=== PATIENT | female | born 1945 | race Caucasian/White ===

== ENCOUNTER 2017-04-21 15:53 | Emergency (ER) | payer MEDICARE ==
[2017-04-21 16:32] VITALS: RESP 18
--- NOTE | 2017-04-21 16:43 | ED ---
URI HPI - General Chief Complaint: Upper Respiratory Infection Stated Complaint: Cough Time Seen by Provider: 04/21/17 16:17 Source: patient, RN notes reviewed Mode of arrival: ambulatory Limitations: no limitations - History of Present Illness Initial Comments: This is a 71-year-old female who states she developed a cough with some yellow phlegm and then later on a fever. She states this is after having a colonoscopy done this morning. She states she had been of a sore throat after the procedure she was not intubated she was given only IV sedation. She denies any chest pain rhinorrhea earaches. His abdomen cough no chest pain again no bowel pain no nausea vomiting diarrhea no other complaints at this time. She is concerned about possible aspiration. MD Complaint: fever, cough - Related Data Home Medications Medication Instructions Recorded Confirmed Ascorbic Acid [Vitamin C] 500 mg PO HS 01/16/17 04/21/17 Fexofenadine HCl [Barbara Allergy] 180 mg PO DAILY PRN 01/16/17 04/21/17 Lecithin, Soy [Lecithin] 400 mg PO DAILY 01/16/17 04/21/17 [place] Otc (Unknown Dose) 1 tab PO DAILY 01/16/17 04/21/17 Thyrocsin (Unknown Dose) 1 tab PO DAILY 01/16/17 04/21/17 Z-M-C 1 tab PO DAILY 01/16/17 04/21/17 Previous Rx's Medication Instructions Recorded Amoxicillin/Potassium Clav 1 tab PO Q12HR #20 tab 04/21/17 [Augmentin 875-125 Tablet] Allergies Allergy/AdvReac Type Severity Reaction Status Date / Time azithromycin Allergy Nausea & Verified 04/21/17 16:53 [From Zithromax Z-Brad] Vomiting clarithromycin [From Biaxin] Allergy Nausea & Verified 04/21/17 16:53 Vomiting Penicillins Allergy Nausea & Verified 04/21/17 16:53 Vomiting COTTONSEED OIL Allergy Rash/Hives Uncoded 04/21/17 16:07 Review of Systems ROS Statement: Those systems with pertinent positive or pertinent negative responses have been documented in the HPI. ROS Other: All systems not noted in ROS Statement are negative. Past Medical History Past Medical History: Asthma, Cancer, Osteoarthritis (OA), Sleep Apnea/CPAP/ BIPAP Additional Past Medical History / Comment(s): Uterine CANCER(HYSTERECTOMY DONE) , LUMBAR DDD, PAST RT GREAT TOE FX, PAST HYPOGLYCEMIA . HX OF BEING TX W/ METFORMIN FOR A YEAR-STOPPED MEDS 4 MONTHS AGO(APPROX SEP 2016) NO LONGER TAKES MEDS OR CHECKS BS. VARICOSE VEINS,HAYFEVER, SINUS PROBLMES,HAS CPAP BUT DOES'NT USE IT. MONO AGE 23. EXERCISE INDUCED ASTHMA, BRONCHITIS. FUCHS CORNEAL DYSTROPHY RECENTLY DIAGNOSED. AT AGE 28 WAS ON THYROID MEDS FOR 1 YEAR THEN TAKNE OFF. History of Any Multi-Drug Resistant Organisms: None Reported Past Surgical History: Adenoidectomy, Appendectomy, Hysterectomy, Orthopedic Surgery, Tonsillectomy Additional Past Surgical History / Comment(s): bilateral hip replacement at [facility], UPPER DENTAL IMPLANT, 2007 HAD LUMBAR EPIDURAL STEROID INJ, COLONOSCOPY, L4 NERVE BLOCK Past Anesthesia/Blood Transfusion Reactions: Motion Sickness Past Psychological History: Depression Smoking Status: Former smoker Past Alcohol Use History: None Reported Past Drug Use History: None Reported - Past Family History Mother Family Medical History: Cancer, Rheumatoid Arthritis (RA) Additional Family Medical History / Comment(s): still alive. hx of aaa 2004, skin cancer. Father Family Medical History: Congestive Heart Failure (CHF) Sister(s) Family Medical History: Cancer Additional Family Medical History / Comment(s): colon cancer General Exam - General Exam Comments Initial Comments: This is a well-developed well-nourished awake alert oriented 3 female Limitations: no limitations General appearance: alert, in no apparent distress Head exam: Present: atraumatic, normocephalic, normal inspection Eye exam: Present: normal appearance, PERRL, EOMI. Absent: scleral icterus, conjunctival injection, periorbital swelling ENT exam: Present: normal exam, mucous membranes moist Neck exam: Present: normal inspection. Absent: tenderness, meningismus, lymphadenopathy Respiratory exam: Present: other (Some crackles at the base patient left). Absent: respiratory distress, wheezes, rales, rhonchi, stridor Cardiovascular Exam: Present: regular rate, normal rhythm, normal heart sounds. Absent: systolic murmur, diastolic murmur, rubs, gallop, clicks GI/Abdominal exam: Present: soft, normal bowel sounds. Absent: distended, tenderness, guarding, rebound, rigid Extremities exam: Present: normal inspection, full ROM, normal capillary refill. Absent: tenderness, pedal edema, joint swelling, calf tenderness Back exam: Present: normal inspection Neurological exam: Present: alert, oriented X3, CN II-XII intact Psychiatric exam: Present: normal affect, normal mood Skin exam: Present: warm, dry, intact, normal color. Absent: rash Course Vital Signs 04/21/17 04/21/17 16:05 16:31 Temperature 100.8 F H Pulse Rate 78 Respiratory 20 18 Rate Blood Pressure 134/65 O2 Sat by Pulse 93 L Oximetry Medical Decision Making - Medical Decision Making I did discuss findings with the patient the x-ray does show evidence of atelectasis a pneumonitis is suspected she will be discharged she states she can take penicillins he does cause upset stomach she is wanted try Augmentin. She will take Tylenol for her fever she states she will wait until she is home and take some. - Radiology Data Radiology results: report reviewed (I did review the imaging and report or is some evidence of atelectasis in left lower lobe), image reviewed Disposition Clinical Impression: Pneumonitis, Aspiration into respiratory tract, Febrile illness, acute Disposition: HOME SELF-CARE Condition: Good Instructions: Pneumonitis (ED), Fever in Adults (ED) Prescriptions: Amoxicillin/Potassium Clav [Augmentin 875-125 Tablet] 1 tab PO Q12HR #20 tab Referrals: Guero Guo DO [Primary Care Provider] - 1-2 days
--- NOTE | 2017-04-21 16:47 | XR ---
EXAMINATION TYPE: XR chest 2V DATE OF EXAM: 04/21/2017 COMPARISON: 01/16/2017 HISTORY: Cough and congestion after colonoscopy TECHNIQUE: Frontal and lateral views of the chest are obtained. FINDINGS: There is no focal air space opacity, pleural effusion, or pneumothorax seen. Minimal left basilar subsegmental atelectasis is noted. The cardiac silhouette size is within normal limits. Th e osseous structures are intact. Mild degenerative changes of the thoracic spine are noted. IMPRESSION: Minimal left basilar subsegmental atelectasis otherwise no acute cardiopulmonary process .
[2017-04-21 17:08] VITALS: BP 144/69; PULSE 104; TEMP 101.2
== END 2017-04-21 17:16 | disposition home or self-care (01) ==
LOC: EC 15:53
DX: J69.0 Pneumonitis due to inhalation of food and vomit (principal); J98.11 Atelectasis; G47.30 Sleep apnea, unspecified; F32.9 Major depressive disorder, single episode, unspecified; Z87.891 Personal history of nicotine dependence; Z79.899 Other long term (current) drug therapy; Z88.0 Allergy status to penicillin; Z88.1 Allergy status to other antibiotic agents; Z91.048 Other nonmedicinal substance allergy status; Z90.89 Acquired absence of other organs; Z85.42 Personal history of malignant neoplasm of other parts of uterus; Z90.710 Acquired absence of both cervix and uterus; Z99.89 Dependence on other enabling machines and devices
CPT/HCPCS: 71046; 99283

== ENCOUNTER 2017-10-15 06:00 | Emergency (ER) | payer MEDICARE ==
[2017-10-15 06:10] VITALS: BP 150/67; PULSE 82; RESP 16; TEMP 97.7
[2017-10-15 06:34] LABS: Appearance,Urine Turbid (Clear); Bacteria,Urine Moderate /hpf; Bilirubin,Urine Negative (Negative); Blood,Urine Large (Negative); Color,Urine Yellow; Glucose,Urine (UA) Negative (Negative); Ketones,Urine Negative (Negative); Leukocyte Esterase,Urine Large (Negative); Mucus,Urine Occasional /hpf; Nitrite,Urine Positive (Negative); PH, Urine 5.5 (5.0-8.0); Protein,Urine 2+ (Negative); RBC,Urine 165 /hpf (0-5); Specific Gravity,Urine 1.015 (1.001-1.035); Squamous Epithelial Cell,Urine 18 /hpf (0-4); Urobilinogen,Urine <2.0 mg/dL (<2.0); WBC,Urine >182 /hpf (0-5)
[2017-10-15] MEDS ORDERED: NITROFURANTOIN MONOHYD/M-CRYST 100 MG CAP PO STA (06:41)
--- NOTE | 2017-10-15 06:42 | ED ---
General Adult HPI - General Chief complaint: Urogenital Stated complaint: Female Time Seen by Provider: 10/15/17 06:21 Source: patient, RN notes reviewed, old records reviewed Mode of arrival: ambulatory Limitations: no limitations - History of Present Illness Initial comments: This is a 71-year-old female the ER for evaluation. Today she presents for evaluation regards to significant urinary tract symptoms. Burning with urination dysuria and decreased urination. Patient denies fever no back pain, no abdominal pain - Related Data Home Medications Medication Instructions Recorded Confirmed Ascorbic Acid [Vitamin C] 500 mg PO HS 01/16/17 04/21/17 Fexofenadine HCl [Barbara Allergy] 180 mg PO DAILY PRN 01/16/17 04/21/17 Lecithin, Soy [Lecithin] 400 mg PO DAILY 01/16/17 04/21/17 [place] Otc (Unknown Dose) 1 tab PO DAILY 01/16/17 04/21/17 Thyrocsin (Unknown Dose) 1 tab PO DAILY 01/16/17 04/21/17 Z-M-C 1 tab PO DAILY 01/16/17 04/21/17 Previous Rx's Medication Instructions Recorded Amoxicillin/Potassium Clav 1 tab PO Q12HR #20 tab 04/21/17 [Augmentin 875-125 Tablet] Nitrofurantoin Monohyd/M-Cryst 100 mg PO Q12HR #14 cap 10/15/17 [Macrobid] Allergies Allergy/AdvReac Type Severity Reaction Status Date / Time azithromycin Allergy Nausea & Verified 04/21/17 16:53 [From Zithromax Z-Brad] Vomiting clarithromycin [From Biaxin] Allergy Nausea & Verified 04/21/17 16:53 Vomiting Penicillins Allergy Nausea & Verified 04/21/17 16:53 Vomiting COTTONSEED OIL Allergy Rash/Hives Uncoded 04/21/17 16:07 Review of Systems ROS Statement: Those systems with pertinent positive or pertinent negative responses have been documented in the HPI. ROS Other: All systems not noted in ROS Statement are negative. Past Medical History Past Medical History: Asthma, Cancer, Osteoarthritis (OA), Sleep Apnea/CPAP/ BIPAP Additional Past Medical History / Comment(s): Uterine CANCER(HYSTERECTOMY DONE) , LUMBAR DDD, PAST RT GREAT TOE FX, PAST HYPOGLYCEMIA . HX OF BEING TX W/ METFORMIN FOR A YEAR-STOPPED MEDS 4 MONTHS AGO(APPROX SEP 2016) NO LONGER TAKES MEDS OR CHECKS BS. VARICOSE VEINS,HAYFEVER, SINUS PROBLMES,HAS CPAP BUT DOES'NT USE IT. MONO AGE 23. EXERCISE INDUCED ASTHMA, BRONCHITIS. FUCHS CORNEAL DYSTROPHY RECENTLY DIAGNOSED. AT AGE 28 WAS ON THYROID MEDS FOR 1 YEAR THEN TAKNE OFF. History of Any Multi-Drug Resistant Organisms: None Reported Past Surgical History: Adenoidectomy, Appendectomy, Hysterectomy, Orthopedic Surgery, Tonsillectomy Additional Past Surgical History / Comment(s): bilateral hip replacement at [facility], UPPER DENTAL IMPLANT, 2007 HAD LUMBAR EPIDURAL STEROID INJ, COLONOSCOPY, L4 NERVE BLOCK Past Anesthesia/Blood Transfusion Reactions: Motion Sickness Past Psychological History: Depression Smoking Status: Former smoker Past Alcohol Use History: None Reported Past Drug Use History: None Reported - Past Family History Mother Family Medical History: Cancer, Rheumatoid Arthritis (RA) Additional Family Medical History / Comment(s): still alive. hx of aaa 2004, skin cancer. Father Family Medical History: Congestive Heart Failure (CHF) Sister(s) Family Medical History: Cancer Additional Family Medical History / Comment(s): colon cancer General Exam Limitations: no limitations General appearance: alert, in no apparent distress Head exam: Present: atraumatic, normocephalic, normal inspection Eye exam: Present: normal appearance, PERRL, EOMI. Absent: scleral icterus, conjunctival injection, periorbital swelling ENT exam: Present: normal exam, mucous membranes moist Neck exam: Present: normal inspection. Absent: tenderness, meningismus, lymphadenopathy Respiratory exam: Present: normal lung sounds bilaterally. Absent: respiratory distress, wheezes, rales, rhonchi, stridor Cardiovascular Exam: Present: regular rate, normal rhythm, normal heart sounds. Absent: systolic murmur, diastolic murmur, rubs, gallop, clicks GI/Abdominal exam: Present: soft, normal bowel sounds. Absent: distended, tenderness, guarding, rebound, rigid Extremities exam: Present: normal inspection, full ROM, normal capillary refill. Absent: tenderness, pedal edema, joint swelling, calf tenderness Back exam: Present: normal inspection Neurological exam: Present: alert, oriented X3, CN II-XII intact Psychiatric exam: Present: normal affect, normal mood Skin exam: Present: warm, dry, intact, normal color. Absent: rash Course Vital Signs 10/15/17 06:06 Temperature 97.7 F Pulse Rate 82 Respiratory 16 Rate Blood Pressure 150/67 O2 Sat by Pulse 98 Oximetry Medical Decision Making - Medical Decision Making 71 female positive urinary tract infection, UTI positive we'll culture, patient discharged on antibiotics no nausea vomiting no fevers, no pain - Lab Data Lab Results 10/15/17 Range/Units 06:00 Urine Color Yellow Urine Appearance Turbid H (Clear) Urine pH 5.5 (5.0-8.0) Ur Specific [place] 1.015 (1.001-1.035) Urine Protein 2+ H (Negative) Urine Glucose (UA) Negative (Negative) Urine Ketones Negative (Negative) Urine Blood Large H (Negative) Urine Nitrite Positive H (Negative) Urine Bilirubin Negative (Negative) Urine Urobilinogen <2.0 (<2.0) mg/dL Ur Leukocyte Esterase Large H (Negative) Urine RBC 165 H (0-5) /hpf Urine WBC >182 H (0-5) /hpf Urine WBC Clumps Many H (None) /hpf Ur Squamous Epith Cells 18 H (0-4) /hpf Urine Bacteria Moderate H (None) /hpf Urine Mucus Occasional H (None) /hpf Disposition Clinical Impression: Urinary tract infection Disposition: HOME SELF-CARE Condition: Good Instructions: Urinary Tract Infection in Women (ED) Prescriptions: Nitrofurantoin Monohyd/M-Cryst [Macrobid] 100 mg PO Q12HR #14 cap Is patient prescribed a controlled substance at d/c from ED?: No Referrals: Guero Guo DO [Primary Care Provider] - 1-2 days
== END 2017-10-15 07:01 | disposition home or self-care (01) ==
LOC: EC 06:00
DX: N39.0 Urinary tract infection, site not specified (principal); F32.9 Major depressive disorder, single episode, unspecified; Z87.891 Personal history of nicotine dependence; Z88.0 Allergy status to penicillin; Z88.1 Allergy status to other antibiotic agents; Z91.048 Other nonmedicinal substance allergy status; Z79.899 Other long term (current) drug therapy; Z85.42 Personal history of malignant neoplasm of other parts of uterus; Z90.710 Acquired absence of both cervix and uterus
CPT/HCPCS: 81001; 87077; 87086; 87186; 99284

== ENCOUNTER → 2018-05-30 | Outpatient (CLI) | payer MEDICARE ==
[2018-05-30 13:20] LABS: Basophils % (A) 1 %; Eosinophils # (A) 0.3 k/uL (0-0.7); Eosinophils % (A) 5 %; HGB 13.6 gm/dL (11.4-16.0); Lymphocytes # (A) 1.5 k/uL (1.0-4.8); Lymphocytes % (A) 28 %; MCH 31.2 pg (25.0-35.0); MCHC 33.2 g/dL (31.0-37.0); Monocytes # (A) 0.3 k/uL (0-1.0); Monocytes % (A) 5 %; Neutrophils # (A) 3.2 k/uL (1.3-7.7); Neutrophils % (A) 59 %; Platelet Count 245 k/uL (150-450); RBC 4.36 m/uL (3.80-5.40); RDW 12.4 % (11.5-15.5); WBC 5.4 k/uL (3.8-10.6)
--- NOTE | 2018-05-30 15:52 | XR ---
EXAMINATION TYPE: XR lumbar spine 2 or 3V DATE OF EXAM: 05/30/2018 CLINICAL HISTORY: Difficulty ambulating with left lower extremity radiculopathy TECHNIQUE: Frontal and lateral images of the lumbar spine are obtained. COMPARISON: None FINDINGS: There is diffuse osseous demineralization. There are 5 lumbar type vertebral bodies identif ied. The lumbar spine shows no evidence of vertebral body height loss. There is grade 1 anterolisthe sis of L4 on L5 likely secondary to hypertrophic facet change. Facet arthropathy is seen from L3 thro ugh S1. Surgical clips are present in the pelvis and partially visualized. Minimal atherosclerosis of the abdominal aorta. Vertebral body heights and disk space heights are within normal limits. The ove rlying soft tissue appears unremarkable. IMPRESSION: 1. No vertebral body height loss of the lumbar spine. 2. Grade 1 anterolisthesis of L4 on L5 is likely due to hypertrophic facet change as facet arthropath y is seen from L3 through S1. 3. Diffuse osseous demineralization.
[2018-05-30 20:08] LABS: Anion Gap 8.4 mmol/L (4.00-12.00); Calcium 9.5 mg/dL (8.7-10.3); Carbon Dioxide 26.6 mmol/L (21.6-31.8); LDL Cholesterol,Calculated 109.8 mg/dL (0.0-131.0); Potassium 4.1 mmol/L (3.5-5.5); VLDL Calculation 23.2 mg/dL (5.00-40.00)
[2018-05-30 21:48] LABS: Hemoglobin A1C 5.7 % (4.0-6.0)
== END | disposition home or self-care (01) ==
LOC: LABWHC1 12:29
PROVIDERS: ATTEND Family Medicine
DX: M43.16 Spondylolisthesis, lumbar region (principal); M46.97 Unspecified inflammatory spondylopathy, lumbosacral region; E11.9 Type 2 diabetes mellitus without complications
CPT/HCPCS: 36415; 72100; 80048; 80061; 83036; 85025

== ENCOUNTER → 2018-11-14 | Outpatient (CLI) | payer MEDICARE ==
--- NOTE | 2018-11-19 17:10 | EEG ---
ELECTROENCEPHALOGRAM REPORT DATE OF SERVICE: 11/14/2018 REQUEST PHYSICIAN: Dr. Strange. ELECTRONYSTAGMOGRAPHIC REPORT: AGE: 72 VNG INDICATIONS: Vertigo beginning October 30 and resolving as of four days ago. They were occurring every 10-30 seconds and were triggered by body positional changes. VNG FINDINGS: SPONTANEOUS NYSTAGMUS: SACCADES: Saccades shows intact peak velocities accuracies and latencies. GAZE TEST: Gaze with fixation shows no nystagmus in any of the directions of gaze including centrally with vision denied. SINUSOIDAL TRACKING: Tracking shows no break-ups. OKN TEST: Optokinetic nystagmus shows no asymmetries at faster or slower speeds. DARIANA-HALLPIKE TEST: POSITION TEST: Static position testing in 6 different positions shows no nystagmus with eyes opened or vision denied. Dynamic position testing not done. CALORIC TEST: Caloric testing shows bilateral caloric weakness. 8 degrees elicited from the right ear and 2 degrees from the left ear. IMPRESSION: VNG testing shows no spontaneous nystagmus. All sections were unremarkable with the exception of caloric responses which were weak bilaterally. Therefore, no determination as to vestibulopathy could be made from testing today. Another test, such as head thrust test or if available, active and passive rotation testing are required to confirm presence of bilateral vestibular dysfunction. MMODL / IJN: [id number] /
== END | disposition home or self-care (01) ==
LOC: NEUROMAIN 08:38
PROVIDERS: ATTEND Otolaryngology
DX: R42 Dizziness and giddiness (principal)
CPT/HCPCS: 92537; 92540

== ENCOUNTER → 2019-02-11 | Outpatient (CLI) | payer MEDICARE ==
[2019-02-11 08:48] LABS: Albumin 4.8 g/dL (3.5-5.0); Bilirubin, Delta 0.2 mg/dL (0.0-0.2); Bilirubin,Unconjugated 0.9 mg/dL (0.0-1.1); Total Bilirubin 1.1 mg/dL (0.2-1.3); Total Protein 7.9 g/dL (6.3-8.2)
--- NOTE | 2019-02-11 09:21 | CT ---
EXAMINATION TYPE: CT chest w con DATE OF EXAM: 02/11/2019 COMPARISON: 04/21/2009 radiograph HISTORY: 73-year-old female Left renal mass. TECHNIQUE: Contiguous axial scanning of the chest after the administration of 100 mL of Isovue 300. Coronal/sagittal reconstructions performed. CT DLP: 468mGycm. Automatic exposure control utilized for a dose reduction. FINDINGS: Heart normal size without pericardial effusion. Aorta is normal caliber with conventional branching anatomy minimal arch calcification. Large caliber to the main right and left pulmonary arteries measuring 2.8 and 2.7 cm, respectively, s uggesting underlying pulmonary arterial hypertension. No thoracic lymphadenopathy by CT size criteria. A couple emphysematous cysts are noted. No consolidation or pleural effusion. Small hernia. Nonspecific nodularity within the left adrenal gland. 3 nodules are present measuring 1 .3, 1.2, and 1.2 cm. Partially visualized large complex cystic 8.1 cm anterior left upper pole renal mass. No osseous destructive process. IMPRESSION: 1. Partially visualized large, 8.1 cm complex cystic anterior left upper pole renal mass. 2. Nonspecific left adrenal nodularity. 3 nodules are present measuring 1.3 and 1.2 cm. 3. No evidence for metastatic disease to the thorax. 4. A couple emphysematous cysts. Findings suggest underlying pulmonary arterial hypertension.
== END | disposition home or self-care (01) ==
LOC: RADCTMAIN 07:16
PROVIDERS: ATTEND Urology
DX: D41.02 Neoplasm of uncertain behavior of left kidney (principal); J43.9 Emphysema, unspecified; Z88.0 Allergy status to penicillin; Z88.1 Allergy status to other antibiotic agents; Z91.048 Other nonmedicinal substance allergy status
CPT/HCPCS: 80076; 82565; 84520; 71260; 36415; Q9967

== ENCOUNTER → 2019-02-15 | Outpatient (CLI) | payer MEDICARE ==
[2019-02-15 16:15] LABS: ALT 17 U/L (4-34); AST 24 U/L (14-36); African American GFR (CKD) >90 (>60 ml/min/1.73 sqM); Albumin 4.5 g/dL (3.5-5.0); Alkaline Phosphatase 97 U/L (38-126); Anion Gap 8 mmol/L; Blood Urea Nitrogen 14 mg/dL (7-17); Calcium 9.4 mg/dL (8.4-10.2); Carbon Dioxide 28 mmol/L (22-30); Chloride 105 mmol/L (98-107); Glucose 116 mg/dL (74-99); Non-African American GFR(CKD) 86 (>60 ml/min/1.73 sqM); Potassium 4.1 mmol/L (3.5-5.1); Sodium 141 mmol/L (137-145); Total Bilirubin 0.6 mg/dL (0.2-1.3); Total Protein 7.3 g/dL (6.3-8.2)
[2019-02-15 16:26] LABS: Basophils # (A) 0.1 k/uL (0-0.2); Basophils % (A) 2 %; Eosinophils # (A) 0.2 k/uL (0-0.7); Eosinophils % (A) 3 %; HGB 13.6 gm/dL (11.4-16.0); Lymphocytes # (A) 1.4 k/uL (1.0-4.8); Lymphocytes % (A) 32 %; MCH 31.9 pg (25.0-35.0); MCHC 33.1 g/dL (31.0-37.0); MCV 96.4 fL (80.0-100.0); Mean Platelet Volume 10.1; Monocytes # (A) 0.3 k/uL (0-1.0); Monocytes % (A) 6 %; Neutrophils # (A) 2.4 k/uL (1.3-7.7); Neutrophils % (A) 55 %; Platelet Count 210 k/uL (150-450); RBC 4.25 m/uL (3.80-5.40); RDW 12.7 % (11.5-15.5); WBC 4.4 k/uL (3.8-10.6)
== END | disposition home or self-care (01) ==
LOC: LABPAT 15:38
PROVIDERS: ATTEND Urology
DX: Z01.818 Encounter for other preprocedural examination (principal); Z01.812 Encounter for preprocedural laboratory examination; D41.02 Neoplasm of uncertain behavior of left kidney; N28.9 Disorder of kidney and ureter, unspecified; R53.83 Other fatigue
CPT/HCPCS: 80053; 85025; 93005

== ENCOUNTER 2019-02-28 05:51 | Inpatient (IN) | payer MEDICARE ==
[2019-02-21 14:36] VITALS: BMI 30.2
--- NOTE | 2019-02-22 07:28 | P.GSHP ---
History of Present Illness H&P Date: 02/22/19 Chief Complaint: Left Renal Mass The patient is a 73-year-old white female who recently underwent evaluation for abdominal pain, which has resolved. A computed tomography scan of the abdomen was obtained, revealing an 8 cm left renal cystic mass suspicious for renal cell carcinoma. She denies flank pain and hematuria. Her metastatic evaluation has included a computed tomography scan of the chest and LFTs, showing no evidence of malignancy. She has been advised to undergo a left radical nephrectomy comes for this reason. She had an appointment for a second opinion, which she chose to cancel. - Constitutional Constitutional: Denies weight gain, Denies weight loss - Respiratory Respiratory: Reports wheezing - Genitourinary (Female) Genitourinary: Reports urinary frequency, Denies flank pain, Denies hematuria - Psychiatric Psychiatric: Reports insomnia Past Medical History Past Medical History: Asthma, Cancer, Osteoarthritis (OA), Sleep Apnea/CPAP/BIPAP Additional Past Medical History / Comment(s): left kidney mass,hx Uterine CANCER(HYSTERECTOMY DONE), LUMBAR DDD, PAST RT GREAT TOE FX, PAST HYPOGLYCEMIA . HX OF BEING TX W/ METFORMIN FOR A YEAR-STOPPED MEDS 4 MONTHS AGO(APPROX SEP 2016) NO LONGER TAKES MEDS OR CHECKS BS. VARICOSE VEINS,HAYFEVER, SINUS PROBLMES,HAS CPAP BUT DOES'NT USE IT. MONO AGE 23. EXERCISE INDUCED ASTHMA, BRONCHITIS. FUCHS CORNEAL DYSTROPHY RECENTLY DIAGNOSED. SILENT MIGRAINES History of Any Multi-Drug Resistant Organisms: None Reported Past Surgical History: Adenoidectomy, Appendectomy, Hysterectomy, Orthopedic Surgery, Tonsillectomy Additional Past Surgical History / Comment(s): bilateral hip replacement at [facility], UPPER DENTAL IMPLANT #7 tooth, 2007 HAD LUMBAR EPIDURAL STEROID INJ, COLONOSCOPY, L4 NERVE BLOCK Past Anesthesia/Blood Transfusion Reactions: Motion Sickness, Postoperative Nausea & Vomiting (PONV) Additional Past Anesthesia/Blood Transfusion Reaction / Comment(s): aspirated during colonoscopy Jan-2018 Smoking Status: Former smoker - Past Family History Mother Family Medical History: Cancer, Rheumatoid Arthritis (RA) Additional Family Medical History / Comment(s): still alive. hx of aaa 2004, skin cancer. Father Family Medical History: Congestive Heart Failure (CHF) Sister(s) Family Medical History: Cancer, Deep Vein Thrombosis (DVT), Pulmonary Embolus Additional Family Medical History / Comment(s): colon cancer Medications and Allergies Home Medications Medication Instructions Recorded Confirmed Type Ergocalciferol [Vitamin D2] 50,000 unit PO Q7D 02/21/19 02/21/19 History Santo Supplement 1 tab PO DAILY 02/21/19 02/21/19 History Symbiotic, W/ All B Vitamins 1 tab PO DAILY 02/21/19 02/21/19 History Thyrotone Supplement 1 tab PO DAILY 02/21/19 02/21/19 History Allergies Allergy/AdvReac Type Severity Reaction Status Date / Time adhesive tape Allergy Rash/Hives Verified 02/21/19 14:07 azithromycin Allergy Nausea & Verified 02/21/19 14:05 [From Zithromax Z-Brad] Vomiting clarithromycin [From Biaxin] Allergy Nausea & Verified 02/21/19 14:05 Vomiting nickel Allergy Rash/Hives Verified 02/21/19 14:07 Penicillins Allergy Nausea & Verified 02/21/19 14:05 Vomiting COTTONSEED OIL Allergy Rash/Hives Uncoded 02/21/19 14:05 petroleum products Allergy Rash/Hives Uncoded 02/21/19 14:07 Surgical Glue Allergy Rash/Hives Uncoded 02/21/19 14:52 Surgical - Exam - General well developed, well nourished, no distress - Neck no masses, trachea midline - Respiratory normal respiratory effort, clear to auscultation - Cardiovascular Rhythm: regular Abnormal Heart Sounds: no systolic murmur, no diastolic murmur - Abdomen Abdomen: soft, non tender, no guarding, no rigid, no rebound - Neurologic no disoriented, no combative - Psychiatric oriented to time, oriented to person, oriented to place, speech is normal, memory intact Results - Imaging CT scan - abdomen: report reviewed, image reviewed Assessment and Plan (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 The procedure has been reviewed in detail with the patient. She is aware that the procedure can be performed robotically, and referral for this was offered. The anticipated perioperative course has been reviewed with her. She is aware of potential risks, which include anesthesia, bleeding, infection, splenic injury, bowel injury, postoperative paralytic ileus, chylous ascites, and wound-related complications.
[~2019-02-28 05:51] MED LIST: LEVOFLOXACIN 500MG-D5W PMX 500 MG in DEXTROSE/WATER 1 100ML.BAG IVPB ONE
[2019-02-28] MEDS ORDERED: MIDAZOLAM 2 MG/2 ML VIAL IV PRN (06:04)
[2019-02-28] MEDS ORDERED: SCOPOLAMINE 1.5MG/72HR PATCH TRANSDERM ONE (06:04)
[2019-02-28] MEDS ORDERED: ONDANSETRON 4 MG/2 ML VIAL IVP ONE (06:04)
[2019-02-28] MEDS ORDERED: DEXAMETHASONE SOD PHOSPHATE 10 MG/ML 1 ML VIAL IV ONE (06:04)
[2019-02-28] MEDS ORDERED: LIDOCAINE 1% 20 ML VIAL (10MG/ML) FOR IV START INTRADERMA PRN (06:04)
[2019-02-28] MEDS ORDERED: HYDROmorphone 0.5 MG/0.5 ML SYRINGE IVP PRN (06:04)
[2019-02-28] MEDS: LACTATED RINGERS 1,000 ML IV SCH (06:26)
[2019-02-28 06:31] LABS: Glucose,Whole Blood 111 mg/dL (75-99)
[2019-02-28] MEDS ORDERED: PROPOFOL 10 MG/ML 20 ML VIAL IV ONE (07:40)
[2019-02-28] MEDS ORDERED: ROCURONIUM BROMIDE 10 MG/ML 10 ML VIAL IV ONE (07:40)
[2019-02-28] MEDS ORDERED: LIDOCAINE 1% INJ 10MG/ML (20 ML MDV) ONE (07:40)
[2019-02-28] MEDS ORDERED: NEOSTIGMINE 1 MG/ML 10 ML VIAL ONE (07:40)
[2019-02-28] MEDS ORDERED: MIDAZOLAM 2 MG/2 ML VIAL ONE (07:40)
[2019-02-28] MEDS ORDERED: ePHEDrine SULFATE/0.9% NACL/PF 50 MG/5 ML SYRINGE IV ONE (07:40)
[2019-02-28] MEDS ORDERED: WATER FOR INJECTION, STERILE 10 ML VIAL IV ONE (07:40)
[2019-02-28] MEDS ORDERED: GLYCOPYRROLATE 0.2 MG/ML 2 ML VIAL ONE (07:40)
[2019-02-28] MEDS ORDERED: fentaNYL (PF) 50 MCG/ML 2 ML AMP ONE (07:40)
[2019-02-28] MEDS ORDERED: diphenhydrAMINE 50 MG/ML 1 ML VIAL IVP PRN (07:46)
[2019-02-28] MEDS ORDERED: NALOXONE 0.4 MG/ML 1 ML VIAL IV PRN (07:46)
[2019-02-28] MEDS: ROPIVACAINE 250 MG, fentaNYL (PF) 1,250 MCG in SODIUM CHLORIDE 0.9% 175 ML EPIDURAL PRN ×2 (11:28→12:17)
--- NOTE | 2019-02-28 11:29 | P.OP ---
Date of Procedure: 02/28/19 Preoperative Diagnosis: Left renal mass Postoperative Diagnosis: Same Procedure(s) Performed: Left radical nephrectomy with adrenalectomy Anesthesia: GETAskylar Surgeon: Harjinder Steele Wheel Installer #1: Frandy Bro Estimated Blood Loss (ml): 500 IV fluids (ml): 1,700 Pathology: other (Left kidney and adrenal gland) Condition: stable Disposition: PACU Indications for Procedure: The patient is a 73-year-old white female who recently underwent evaluation for abdominal pain, which has resolved. A CT scan of the abdomen was obtained, revealing an 8 cm left renal cystic mass suspicious for renal cell carcinoma. She denies flank pain and hematuria. Her metastatic evaluation has included a CT scan of the chest and LFTs, showing no evidence of malignancy. She has elected to undergo a left radical nephrectomy comes for this reason. Operative Findings: The left upper pole cystic mass was located immediately adjacent to the spleen. The surgical specimen was removed intact without injury to the spleen. Description of Procedure: The patient was taken to the operating room and placed in the supine position. After being given general anesthesia, the abdomen was prepped and draped sterilely. A left sided chevron incision was made using the scalpel. The Bovie electrocautery was used to incise the subcutaneous tissues and muscular layers of the abdominal wall down to the peritoneum. The peritoneum was then carefully entered, and opened the full length of the incision. The abdomen was examined, and no abnormalities were noted other than the renal mass. Specifically, there was no evidence of malignancy elsewhere within the abdomen. The Bookwalter retractor was used for exposure. The peritoneum was incised at the line of Toldt, allowing the left hemicolon to be mobilized medially off of Gerota's fascia. The splenocolic ligament was carefully divided. This allowed the colon to be reflected medially until the aorta was exposed anteriorly. The dissection was then performed inferiorly at the tail of Gerota's fascia. The plane posterior to the kidney along the posterior abdominal wall was developed via blunt dissection. The dissection was then continued in a cephalad direction along the lateral aspect of the aorta. The tissue within the left renal hilum was clipped and divided immediately alongside the lateral aspect of the aorta. There was no evidence of adenopathy. The left renal vein and left renal artery were identified. The left renal artery was ligated using a 2-0 silk tie. The adrenal vein and the gonadal vein where isolated, ligated, and divided as they inserted into the left renal vein. The left renal vein was then likewise ligated twice proximally and distally. A suture ligature was placed through the proximal aspect of the vein prior to dividing it. The left renal artery was then ligated 2 additional times, such that it was ligated twice proximally and once distally prior to dividing it. The remaining hilar tissues were clipped and divided at this time. Once the hilar dissection had been completed, the inferior aspect of the dissection was completed. Both the ureter and gonadal vein were clipped and divided. Blunt dissection was then performed to complete the posterior dissection. Superiorly, the peritoneum was incised. Superior attachments were clipped and divided, allowing removal of the surgical specimen along with the adrenal gland. It should be noted that the left upper pole cystic mass was immediately adjacent to the spleen, making this aspect of the procedure extremely difficult. After removing the specimen, the surgical field was examined and hemostasis was noted to be excellent. The spleen showed no evidence of injury. The Bookwalter retractor was removed. The abdominal contents were allowed to return to their normal location. Each individual muscle layer of the anterior abdominal wall was closed using #1 Vicryl suture in a running fashion. Hemostasis within the subcutaneous tissues was excellent. The skin was closed using berenice. A sterile gauze dressing was applied over the incision. All sponge and needle counts were correct. The patient tolerated the procedure well was taken to the recovery room in stable condition.
[2019-02-28] MEDS ORDERED: diphenhydrAMINE 50 MG/ML 1 ML VIAL IVP ONE (12:02)
[2019-02-28] MEDS: DEXTROSE 5%-0.45% NACL 1,000 ML IV SCH ×2 (16:40→22:01)
[2019-02-28] MEDS: ONDANSETRON 4 MG/2 ML VIAL IVP PRN (21:51)
[2019-02-28] MEDS: HEPARIN SODIUM,PORCINE 5,000 UNIT/ML 1 ML VIAL SQ SCH (21:52)
[2019-03-01] MEDS: ROPIVACAINE 250 MG, fentaNYL (PF) 1,250 MCG in SODIUM CHLORIDE 0.9% 175 ML EPIDURAL PRN (05:07)
[2019-03-01 07:47] LABS: Basophils % (A) 0 %; Eosinophils # (A) 0.1 k/uL (0-0.7); Eosinophils % (A) 1 %; HCT 32.1 % (34.0-46.0); Lymphocytes # (A) 1.1 k/uL (1.0-4.8); Lymphocytes % (A) 21 %; MCH 32.6 pg (25.0-35.0); MCHC 34.2 g/dL (31.0-37.0); MCV 95.5 fL (80.0-100.0); Mean Platelet Volume 8.3; Monocytes # (A) 0.3 k/uL (0-1.0); Monocytes % (A) 5 %; Neutrophils # (A) 3.9 k/uL (1.3-7.7); Neutrophils % (A) 72 %; Platelet Count 156 k/uL (150-450); RBC 3.36 m/uL (3.80-5.40); RDW 12.4 % (11.5-15.5); WBC 5.4 k/uL (3.8-10.6)
--- NOTE | 2019-03-01 08:16 | P.PN ---
Progress Note - Text Progress Note Date: 03/01/19 Patient was seen at 7:15 AM 03/01/2019. Postoperative day #1 , thoracic epidural catheter placed for postoperative analgesia, patient doing well epidural site okay, patient currently on combination of epidural infusion solution of Ropivacaine 0.0625% and fentanyl 2.5 g per mL the infusion rate at 5 ml per hour , patient had no motor deficit epidural site okay , vital signs stable ,VAS 0 /10, at rest and she had minimal pain with activity , Assessment and plan= post operative day #1 patient doing well ,pain well controlled , there is no anesthesia related complications
[2019-03-01] MEDS: DEXTROSE 5%-0.45% NACL 1,000 ML IV SCH ×2 (08:17→17:45)
[2019-03-01] MEDS: HEPARIN SODIUM,PORCINE 5,000 UNIT/ML 1 ML VIAL SQ SCH ×2 (08:17→21:25)
[2019-03-01 08:35] LABS: Calcium 7.9 mg/dL (8.4-10.2); Potassium 3.6 mmol/L (3.5-5.1)
--- NOTE | 2019-03-01 09:00 | P.PN ---
Subjective Progress Note Date: 03/01/19 Principal diagnosis: POD #1, s/p left radical nephrectomy The patient feels well. Her pain is controlled. She has experienced mild nausea which she attributes to the epidural. The epidural doses were decreased and the nausea has resolved. She has sat at the edge of the bed and wishes to ambulate. She denies chest pain and shortness of breath. Objective - Vital Signs Vital signs: Vital Signs Temp 98.9 F 03/01/19 07:00 Pulse 84 03/01/19 07:00 Resp 17 03/01/19 07:00 BP 110/63 03/01/19 07:00 Pulse Ox 93 L 03/01/19 07:00 Intake & Output 02/28/19 03/01/19 03/01/19 18:59 06:59 18:59 Intake Total 3206 Output Total 1350 Balance 1856 Weight 84.8 kg Intake: IV 3006 Intake, IV Titration 200 Amount Dextrose 5%-0.45% NaCl 1, 200 000 ml @ 100 mls/hr IV . Q10H [facility] Rx#:[id number] Output: Urine 850 Estimated Blood Loss 500 Other: Voiding Method Self-Catheterization Self-Catheterization # Voids 2 - Constitutional General appearance: Present: average body habitus, cooperative, no acute distress - Gastrointestinal Gastrointestinal Comment(s): Soft, non-distended. Dressing dry and intact. - Psychiatric Psychiatric: Present: A&O x's 3, appropriate affect - Labs CBC & Chem 7: 03/01/19 07:14 03/01/19 07:14 Labs: Abnormal Lab Results - Last 24 Hours (Table) 03/01/19 03/01/19 Range/Units 07:14 07:14 RBC 3.36 L (3.80-5.40) m/uL Hgb 11.0 L (11.4-16.0) gm/dL Hct 32.1 L (34.0-46.0) % Creatinine 1.16 H (0.52-1.04) mg/dL Glucose 128 H (74-99) mg/dL Calcium 7.9 L (8.4-10.2) mg/dL Assessment and Plan (1) Neoplasm of uncertain behavior of left kidney Current Visit: No Status: Acute Code(s): D41.02 - NEOPLASM OF UNCERTAIN BEHAVIOR OF LEFT KIDNEY SNOMED Code(s): 538860581446481 Plan: D/C [place]. Begin clear liquid diet, advance as tolerated. Ambulate.
[2019-03-01] MEDS: ACETAMINOPHEN TAB 325 MG TAB PO PRN (16:57)
[2019-03-01] MEDS: LACTATED RINGERS 1,000 ML IV SCH (19:06)
[2019-03-02] MEDS: DEXTROSE 5%-0.45% NACL 1,000 ML IV SCH ×3 (03:53→22:54)
[2019-03-02] MEDS: LACTATED RINGERS 1,000 ML IV SCH (04:58)
[2019-03-02] MEDS: HEPARIN SODIUM,PORCINE 5,000 UNIT/ML 1 ML VIAL SQ SCH ×2 (08:13→21:17)
[2019-03-02] MEDS: ACETAMINOPHEN TAB 325 MG TAB PO PRN ×3 (08:14→21:17)
--- NOTE | 2019-03-02 10:32 | P.PN ---
Progress Note - Text Progress Note Date: 03/02/19 The patient is 2 days post left radical nephrectomy and adrenalectomy. She is afebrile and normotensive. She is tolerating a diet. She denies any shortness of breath or chest pain. She still has an epidural catheter in and says that she would prefer to have this in for another day as she develops pain when the epidural rate is decreased. Her Jarrett catheter remains in place and is draining clear urine. The patient's epidural catheter will be left in place if okay with anesthesia. I anticipate removing the epidural catheter in the morning. It's unclear if the patient would be able to be discharged tomorrow as she says she lives alone and is not certain that she would be able to manage by herself.
--- NOTE | 2019-03-02 15:55 | P.PN ---
Progress Note - Text 03/02 2549 73-year-old female status post radical nephrectomy by Dr. Steele. Patient has an epidural catheter for postop pain control with the solution running at 6 mL an hour, she has a VAS of 3, no motor or sensory deficit noted. And to continue epidural infusion
[2019-03-02] MEDS: ONDANSETRON 4 MG/2 ML VIAL IVP PRN (22:54)
[2019-03-03] MEDS: ROPIVACAINE 250 MG, fentaNYL (PF) 1,250 MCG in SODIUM CHLORIDE 0.9% 175 ML EPIDURAL PRN (00:51)
[2019-03-03] MEDS: ACETAMINOPHEN TAB 325 MG TAB PO PRN (07:05)
[2019-03-03] MEDS: HEPARIN SODIUM,PORCINE 5,000 UNIT/ML 1 ML VIAL SQ SCH ×2 (07:09→21:02)
[2019-03-03] MEDS ORDERED: BISACODYL 10 MG SUPP RECTAL STA (07:17)
[2019-03-03] MEDS: DEXTROSE 5%-0.45% NACL 1,000 ML IV SCH (07:52)
[2019-03-03 08:00] LABS: Basophils % (A) 1 %; Eosinophils # (A) 0.1 k/uL (0-0.7); Eosinophils % (A) 4 %; HCT 34.1 % (34.0-46.0); HGB 10.9 gm/dL (11.4-16.0); Lymphocytes # (A) 0.7 k/uL (1.0-4.8); Lymphocytes % (A) 20 %; MCH 31.3 pg (25.0-35.0); MCHC 31.9 g/dL (31.0-37.0); MCV 98.1 fL (80.0-100.0); Mean Platelet Volume 7.9; Monocytes # (A) 0.2 k/uL (0-1.0); Monocytes % (A) 6 %; Neutrophils # (A) 2.4 k/uL (1.3-7.7); Neutrophils % (A) 68 %; Platelet Count 150 k/uL (150-450); RBC 3.48 m/uL (3.80-5.40); RDW 12.1 % (11.5-15.5); WBC 3.5 k/uL (3.8-10.6)
--- NOTE | 2019-03-03 08:59 | P.PN ---
Progress Note - Text Progress Note Date: 03/03/19 The patient is afebrile and normotensive. She is tolerating regular diet. Early this morning she developed severe pain in the right lower quadrant. This was associated with some nausea. Since that time she has passed a moderate amount of gas and says that she feels much better. White blood count this morning is 3500. On examination her incision is dry. She has a moderate amount of gas present within the abdomen. There is mild tenderness in the right lower quadrant and the findings are most consistent with discomfort related to gas in the colon. The patient has been treated with a Dulcolax suppository. Her epidural catheter will be removed this morning and her Jarrett catheter will be removed later in the day. If she remains comfortable she will be discharged in the morning.
[2019-03-03] MEDS ORDERED: KETOROLAC 30 MG/ML 1 ML VIAL IVP SCH (12:00)
[2019-03-03] MEDS: KETOROLAC 30 MG/ML 1 ML VIAL IVP PRN ×2 (14:09→21:02)
--- NOTE | 2019-03-03 20:21 | P.PN ---
Progress Note - Text 03/03 151 33-year-old female status post nephrectomy. Patient had an epidural catheter for postop pain control was DC'd this morning. No sensory or motor deficit noted. Patient doing well.
[2019-03-04] MEDS: DEXTROSE 5%-0.45% NACL 1,000 ML IV SCH ×3 (03:14→18:18)
[2019-03-04] MEDS: KETOROLAC 30 MG/ML 1 ML VIAL IVP PRN ×2 (03:15→19:59)
[2019-03-04] MEDS: HEPARIN SODIUM,PORCINE 5,000 UNIT/ML 1 ML VIAL SQ SCH ×2 (08:27→20:00)
[2019-03-04] MEDS: ACETAMINOPHEN TAB 325 MG TAB PO PRN ×3 (08:30→23:45)
[2019-03-04] MEDS ORDERED: BISACODYL 10 MG SUPP RECTAL STA (08:34)
--- NOTE | 2019-03-04 16:43 | P.PN ---
Subjective Progress Note Date: 03/04/19 POD #4 s/p L Nephrectomy, complaining of nauseas and RLQ abdominal pain this am. Has not vomited, and is passing flatus Objective - Vital Signs Vital signs: Vital Signs Temp 98.2 F 03/04/19 15:00 Pulse 83 03/04/19 15:00 Resp 12 03/04/19 15:00 BP 175/75 03/04/19 15:00 Pulse Ox 95 03/04/19 15:00 Intake & Output 03/03/19 03/04/19 03/04/19 18:59 06:59 18:59 Intake Total 1000 Output Total 1000 Balance 0 Intake: Intake, IV Titration 700 Amount Dextrose 5%-0.45% NaCl 1, 700 000 ml @ 100 mls/hr IV . Q10H [facility] Rx#:[id number] Oral 300 Output: Urine 1000 Uretheral (Jarrett) 1000 Other: Voiding Method Indwelling Catheter Indwelling Catheter Indwelling Catheter # Voids 3 - Gastrointestinal General gastrointestinal: Present: tenderness (RLQ). Absent: distended, soft - Psychiatric Psychiatric: Present: A&O x's 3 - Labs CBC & Chem 7: 03/03/19 07:40 03/01/19 07:14 Assessment and Plan Assessment: 73 yo female S/P Left nephrectomy, complain of poor appetite and RLQ abdominal pain, which is improving -ambulate -pain control -Bowel regimen -Potential discharge home tomorrow if symptoms improve
[2019-03-05] MEDS: DEXTROSE 5%-0.45% NACL 1,000 ML IV SCH ×3 (02:56→19:33)
[2019-03-05] MEDS: KETOROLAC 30 MG/ML 1 ML VIAL IVP PRN ×2 (03:00→11:12)
[2019-03-05] MEDS: HEPARIN SODIUM,PORCINE 5,000 UNIT/ML 1 ML VIAL SQ SCH ×2 (08:11→21:34)
[2019-03-05] MEDS: ACETAMINOPHEN TAB 325 MG TAB PO PRN ×3 (08:19→21:35)
[2019-03-05] MEDS: SENNOSIDES-DOCUSATE SODIUM 1 EACH TAB PO SCH ×2 (10:19→21:34)
[2019-03-05] MEDS: ONDANSETRON 4 MG/2 ML VIAL IVP PRN (15:05)
--- NOTE | 2019-03-05 16:12 | P.PN ---
Subjective Progress Note Date: 03/05/19 POD #5 s/p L Nephrectomy, complaining of nauseas and RLQ abdominal pain this am. Has not vomited, and is passing flatus. Indicates pain has improved compared to yesterday. Objective - Vital Signs Vital signs: Vital Signs Temp 98.1 F 03/05/19 15:00 Pulse 83 03/05/19 15:00 Resp 14 03/05/19 15:00 BP 178/80 03/05/19 15:00 Pulse Ox 97 03/05/19 15:00 Intake & Output 03/04/19 03/05/19 03/05/19 18:59 06:59 18:59 Intake Total 20 Balance 20 Weight 84.8 kg Intake: Oral 20 Other: Voiding Method Indwelling Catheter Toilet Toilet # Voids 3 1 2 - Gastrointestinal General gastrointestinal: Present: soft, tenderness (RLQ). Absent: distended - Psychiatric Psychiatric: Present: A&O x's 3 - Labs CBC & Chem 7: 03/03/19 07:40 03/01/19 07:14 Assessment and Plan Assessment: 73 yo female S/P Left nephrectomy, complain of poor appetite and RLQ abdominal pain, which is improving -ambulate -pain control -Bowel regimen -Potential discharge home tomorrow
[2019-03-06] MEDS: ONDANSETRON 4 MG/2 ML VIAL IVP PRN ×2 (00:31→10:22)
[2019-03-06] MEDS: ACETAMINOPHEN TAB 325 MG TAB PO PRN ×2 (03:57→10:21)
[2019-03-06 08:17] VITALS: BP 149/79; PULSE 72; TEMP 98
[2019-03-06] MEDS: HEPARIN SODIUM,PORCINE 5,000 UNIT/ML 1 ML VIAL SQ SCH (09:52)
[2019-03-06] MEDS: SENNOSIDES-DOCUSATE SODIUM 1 EACH TAB PO SCH (09:53)
[2019-03-06 11:34] VITALS: RESP 12
--- NOTE | 2019-03-06 11:56 | P.DS ---
Providers Date of admission: 02/28/19 05:51 Expected date of discharge: 03/06/19 Attending physician: Harjinder Steele Primary care physician: Guero Guo - Discharge Diagnosis(es) (1) Renal cell carcinoma of left kidney Current Visit: Yes Status: Acute Hospital Course: On the day of admission, the patient underwent an uncomplicated left radical nephrectomy. The postoperative course was uncomplicated. She remained afebrile with stable vital signs. The epidural catheter was removed on the third postoperative day. She developed right lower quadrant abdominal pain, associated with decreased appetite and nausea. This improved daily and was significantly improved at the time of discharge. At that time, she was tolerating diet in small amounts. Her nausea was improving. She was passing flatus. She was ambulating without difficulty. On examination, the abdomen was soft and non-distended. The incision was clean, dry, and intact. Mild right lower quadrant tenderness to palpation was noted, without guarding or rebound. 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 Procedures: Left radical nephrectomy on 02/28/2019. Patient Condition at Discharge: Good Plan - Discharge Summary Discharge Rx Participant: No New Discharge Prescriptions: New Hydrocodone/Acetaminophen [[place] 5-325] 1 - 2 each PO Q4HR PRN #6 tab PRN Reason: Pain No Action Ergocalciferol [Vitamin D2] 50,000 unit PO Q7D Thyrotone Supplement 1 tab PO DAILY Symbiotic, W/ All B Vitamins 1 tab PO DAILY Marina Supplement 1 tab PO DAILY Discharge Medication List Ergocalciferol [Vitamin D2] 50,000 unit PO Q7D 02/21/19 [History] Marina Supplement 1 tab PO DAILY 02/21/19 [History] Symbiotic, W/ All B Vitamins 1 tab PO DAILY 02/21/19 [History] Thyrotone Supplement 1 tab PO DAILY 02/21/19 [History] Hydrocodone/Acetaminophen [[place] 5-325] 1 - 2 each PO Q4HR PRN #6 tab 03/01/19 [Rx] Follow up Appointment(s)/Referral(s): Guero Guo DO [Primary Care Provider] - 03/13/19 1:45 pm Harjinder Steele MD [STAFF PHYSICIAN] - 2 Weeks Activity/Diet/Wound Care/Special Instructions: Diet as tolerated. Okay to shower. No lifting, driving, or strenuous activity. Discharge Disposition: HOME SELF-CARE
[2019-03-06] MEDS: DEXTROSE 5%-0.45% NACL 1,000 ML IV SCH (14:12)
== END 2019-03-06 14:43 | disposition home or self-care (01) | DRG 658 ==
LOC: 2ORMAIN 05:51 → 4SSUR 11:03
PROVIDERS: ADMIT Urology; ATTEND Urology
PROC: 0GT20ZZ Resection of Left Adrenal Gland, Open Approach (ICD-10-PCS; principal; 2019-02-28 07:30)
PROC: 0TT10ZZ Resection of Left Kidney, Open Approach (ICD-10-PCS; principal; 2019-02-28 07:30)
DX: C64.2 Malignant neoplasm of left kidney, except renal pelvis (principal); J45.909 Unspecified asthma, uncomplicated; G43.909 Migraine, unspecified, not intractable, without status migrainosus; G47.30 Sleep apnea, unspecified; H18.51 Endothelial corneal dystrophy; M19.90 Unspecified osteoarthritis, unspecified site; M51.36 Other intervertebral disc degeneration, lumbar region; R11.0 Nausea; I83.90 Asymptomatic varicose veins of unspecified lower extremity; T50.905A Adverse effect of unspecified drugs, medicaments and biological substances, initial encounter; Z85.42 Personal history of malignant neoplasm of other parts of uterus; Z87.891 Personal history of nicotine dependence; Z90.710 Acquired absence of both cervix and uterus; Z96.643 Presence of artificial hip joint, bilateral; Z90.49 Acquired absence of other specified parts of digestive tract; Z88.1 Allergy status to other antibiotic agents; Z79.899 Other long term (current) drug therapy; Z88.0 Allergy status to penicillin; Z91.048 Other nonmedicinal substance allergy status; Z80.0 Family history of malignant neoplasm of digestive organs; Z80.8 Family history of malignant neoplasm of other organs or systems; Z82.49 Family history of ischemic heart disease and other diseases of the circulatory system
CPT/HCPCS: 36415; 80048; 85025; 86850; 86900; 86901; 88305; 88307; 88342

== ENCOUNTER 2019-03-14 05:46 | Emergency (ER) | payer MEDICARE ==
[2019-03-14 05:52] VITALS: BP 153/83; PULSE 91; RESP 18; TEMP 97.8
[2019-03-14] MEDS ORDERED: cefTRIAXone IN SWFI 1,000 MG/10 ML SYRINGE IVP STA (06:06)
[2019-03-14 06:15] LABS: Appearance,Urine Clear (Clear); Bilirubin,Urine Negative (Negative); Blood,Urine Negative (Negative); Color,Urine Yellow; Glucose,Urine (UA) Negative (Negative); Ketones,Urine Negative (Negative); Leukocyte Esterase,Urine Negative (Negative); Nitrite,Urine Negative (Negative); Protein,Urine Negative (Negative); Specific Gravity,Urine 1.008 (1.001-1.035); Urobilinogen,Urine <2.0 mg/dL (<2.0)
--- NOTE | 2019-03-14 06:16 | ED ---
Abdominal Pain HPI - General Chief Complaint: Abdominal Pain Stated Complaint: Painful Urination Time Seen by Provider: 03/14/19 05:55 Source: patient, RN notes reviewed Mode of arrival: ambulatory Limitations: no limitations - History of Present Illness Initial Comments: This a 73-year-old female presents emergency Department chief complaint of lower abdominal spasms. Patient states she was diagnosed with a urinary tract infection by her PCP yesterday was placed on 250 mg Cipro twice a day. She states she's take Cipro and past with no difficulty. Patient states that she does have some mild urinary frequency. She does admit that she's had a left nephrectomy [address] Steele secondary to an 8 cm mass which was found to be benign. Patient reports no fever, chills, nausea, vomiting or diarrhea she was constipated but that is improving. Patient did have her follow-up appointments with her surgeon and stated that she's been healing well no lab work performed recently. - Related Data Home Medications Medication Instructions Recorded Confirmed Ergocalciferol [Vitamin D2] 50,000 unit PO Q7D 02/21/19 02/28/19 [place] Supplement 1 tab PO DAILY 02/21/19 02/28/19 Symbiotic, W/ All B Vitamins 1 tab PO DAILY 02/21/19 02/28/19 Thyrotone Supplement 1 tab PO DAILY 02/21/19 02/28/19 Previous Rx's Medication Instructions Recorded Hydrocodone/Acetaminophen [[place] 1 - 2 each PO Q4HR PRN #6 tab 03/01/19 5-325] Allergies Allergy/AdvReac Type Severity Reaction Status Date / Time adhesive tape Allergy Rash/Hives Verified 03/14/19 05:52 azithromycin Allergy stomach Verified 03/14/19 05:52 [From Zithromax Z-Brad] pain clarithromycin [From Biaxin] Allergy Nausea & Verified 03/14/19 05:52 Vomiting nickel Allergy Rash/Hives Verified 03/14/19 05:52 Penicillins Allergy Nausea & Verified 03/14/19 05:52 Vomiting COTTONSEED OIL Allergy Rash/Hives Uncoded 03/14/19 05:52 petroleum products Allergy Rash/Hives Uncoded 03/14/19 05:52 Surgical Glue Allergy Rash/Hives Uncoded 03/14/19 05:52 Review of Systems ROS Statement: Those systems with pertinent positive or pertinent negative responses have been documented in the HPI. ROS Other: All systems not noted in ROS Statement are negative. Past Medical History Past Medical History: Asthma, Cancer, Osteoarthritis (OA), Sleep Apnea/C PAP/BIPAP Additional Past Medical History / Comment(s): Uterine CANCER(HYSTERECTOMY DONE), LUMBAR DDD, PAST RT GREAT TOE FX, PAST HYPOGLYCEMIA . HX OF BEING TX W/ METFORMIN FOR A YEAR-STOPPED MEDS 4 MONTHS AGO(APPROX SEP 2016) NO LONGER TAKES MEDS OR CHECKS BS. VARICOSE VEINS,HAYFEVER, SINUS PROBLMES,HAS CPAP BUT DOES'NT USE IT. MONO AGE 23. EXERCISE INDUCED ASTHMA, BRONCHITIS. FUCHS CORNEAL DYSTROPHY RECENTLY DIAGNOSED. AT AGE 28 WAS ON THYROID MEDS FOR 1 YEAR THEN FATOU NE OFF. History of Any Multi-Drug Resistant Organisms: None Reported Past Surgical History: Adenoidectomy, Appendectomy, Hysterectomy, Orthopedic Surgery, Tonsillectomy Additional Past Surgical History / Comment(s): bilateral hip replacement at [facility], UPPER DENTAL IMPLANT, 2007 HAD LUMBAR EPIDURAL STEROID INJ, C OLONOSCOPY, L4 NERVE BLOCK, left nephrectomy, Past Anesthesia/Blood Transfusion Reactions: Motion Sickness Additional Past Anesthesia/Blood Transfusion Reaction / Comment(s): aspirated during colonoscopy Jan-2018 Past Psychological History: Depression Smoking Status: Former smoker Past Alcohol Use History: None Reported Past Drug Use History: None Reported - Past Family History Mother Family Medical History: Cancer, Rheumatoid Arthritis (RA) Additional Family Medical History / Comment(s): still alive. hx of aaa 2005, skin cancer. Father Family Medical History: Congestive Heart Failure (CHF) Sister(s) Family Medical History: Cancer, Deep Vein Thrombosis (DVT), Pulmonary Embolus Additional Family Medical History / Comment(s): colon cancer General Exam Limitations: no limitations General appearance: alert, in no apparent distress Head exam: Present: atraumatic, normocephalic, normal inspection Eye exam: Present: normal appearance, PERRL, EOMI. Absent: scleral icterus, conjunctival injection, periorbital swelling ENT exam: Present: normal exam, normal oropharynx, mucous membranes moist Neck exam: Present: normal inspection, full ROM. Absent: tenderness, meningismus, lymphadenopathy Respiratory exam: Present: normal lung sounds bilaterally. Absent: respiratory distress, wheezes, rales, rhonchi, stridor Cardiovascular Exam: Present: regular rate, normal rhythm, normal heart sounds. Absent: systolic murmur, diastolic murmur, rubs, gallop, clicks GI/Abdominal exam: Present: soft, normal bowel sounds. Absent: distended, tenderness, guarding, rebound, rigid Back exam: Absent: CVA tenderness (R), CVA tenderness (L) Neurological exam: Present: alert, oriented X3 Skin exam: Present: warm, dry, intact, normal color. Absent: rash Course Vital Signs 03/14/19 05:49 Temperature 97.8 F Pulse Rate 91 Respiratory 18 Rate Blood Pressure 153/83 O2 Sat by Pulse 98 Oximetry Medical Decision Making - Medical Decision Making Patient reevaluated and updated on results. Patient has no abdominal pain or tenderness. This may related to bowel gas pain or spasms. Patient discharged in stable condition return parameters were discussed. - Lab Data Result diagrams: 03/14/19 06:15 03/14/19 06:15 Lab Results 03/14/19 03/14/19 03/14/19 Range/Units 05:53 06:15 06:15 WBC 5.2 (3.8-10.6) k/uL RBC 4.11 (3.80-5.40) m/uL Hgb 12.9 (11.4-16.0) gm/dL Hct 38.8 (34.0-46.0) % MCV 94.2 (80.0-100.0) fL MCH 31.3 (25.0-35.0) pg MCHC 33.2 (31.0-37.0) g/dL RDW 12.5 (11.5-15.5) % Plt Count 320 D (150-450) k/uL Neutrophils % 59 % Lymphocytes % 28 % Monocytes % 5 % Eosinophils % 3 % Basophils % 2 % Neutrophils # 3.1 (1.3-7.7) k/uL Lymphocytes # 1.5 (1.0-4.8) k/uL Monocytes # 0.3 (0-1.0) k/uL Eosinophils # 0.2 (0-0.7) k/uL Basophils # 0.1 (0-0.2) k/uL Sodium 136 L (137-145) mmol/L Potassium 4.4 (3.5-5.1) mmol/L Chloride 102 (98-107) mmol/L Carbon Dioxide 26 (22-30) mmol/L Anion Gap 8 mmol/L BUN 17 (7-17) mg/dL Creatinine 1.15 H (0.52-1.04) mg/dL Est GFR (CKD-EPI)AfAm 54 (>60 ml/min/1.73 sqM) Est GFR (CKD-EPI)NonAf 47 (>60 ml/min/1.73 sqM) Glucose 125 H (74-99) mg/dL Calcium 9.5 (8.4-10.2) mg/dL Total Bilirubin 0.8 (0.2-1.3) mg/dL AST 22 (14-36) U/L ALT 24 (4-34) U/L Alkaline Phosphatase 111 (38-126) U/L Total Protein 7.1 (6.3-8.2) g/dL Albumin 4.4 (3.5-5.0) g/dL Urine Color Yellow Urine Appearance Clear (Clear) Urine pH 7.0 (5.0-8.0) Ur Specific [place] 1.008 (1.001-1.035) Urine Protein Negative (Negative) Urine Glucose (UA) Negative (Negative) Urine Ketones Negative (Negative) Urine Blood Negative (Negative) Urine Nitrite Negative (Negative) Urine Bilirubin Negative (Negative) Urine Urobilinogen <2.0 (<2.0) mg/dL Ur Leukocyte Esterase Negative (Negative) Disposition Clinical Impression: Abdominal pain Disposition: HOME SELF-CARE Condition: Stable Instructions (If sedation given, give patient instructions): Abdominal Pain (ED) Additional Instructions: Please return to the Emergency Department if symptoms worsen or any other concerns. Is patient prescribed a controlled substance at d/c from ED?: No Referrals: Guero Guo DO [Primary Care Provider] - 1-2 days Time of Disposition: 06:41
[2019-03-14 06:29] LABS: Basophils # (A) 0.1 k/uL (0-0.2); Basophils % (A) 2 %; Eosinophils # (A) 0.2 k/uL (0-0.7); Eosinophils % (A) 3 %; HCT 38.8 % (34.0-46.0); HGB 12.9 gm/dL (11.4-16.0); Lymphocytes # (A) 1.5 k/uL (1.0-4.8); Lymphocytes % (A) 28 %; MCH 31.3 pg (25.0-35.0); MCHC 33.2 g/dL (31.0-37.0); MCV 94.2 fL (80.0-100.0); Mean Platelet Volume 7.5; Monocytes # (A) 0.3 k/uL (0-1.0); Monocytes % (A) 5 %; Neutrophils # (A) 3.1 k/uL (1.3-7.7); Neutrophils % (A) 59 %; RBC 4.11 m/uL (3.80-5.40); RDW 12.5 % (11.5-15.5); WBC 5.2 k/uL (3.8-10.6)
[2019-03-14 06:34] LABS: Platelet Count 320 k/uL (150-450)
[2019-03-14 06:37] LABS: Albumin 4.4 g/dL (3.5-5.0); Calcium 9.5 mg/dL (8.4-10.2); Potassium 4.4 mmol/L (3.5-5.1); Total Bilirubin 0.8 mg/dL (0.2-1.3); Total Protein 7.1 g/dL (6.3-8.2)
== END 2019-03-14 06:56 | disposition home or self-care (01) ==
LOC: EC 05:46
DX: R10.9 Unspecified abdominal pain (principal); R30.0 Dysuria; R35.0 Frequency of micturition; G47.30 Sleep apnea, unspecified; Z87.891 Personal history of nicotine dependence; Z91.048 Other nonmedicinal substance allergy status; Z88.0 Allergy status to penicillin; Z88.1 Allergy status to other antibiotic agents; Z91.018 Allergy to other foods; Z88.8 Allergy status to other drugs, medicaments and biological substances; Z96.643 Presence of artificial hip joint, bilateral; Z90.89 Acquired absence of other organs; Z90.710 Acquired absence of both cervix and uterus; Z90.5 Acquired absence of kidney; Z85.42 Personal history of malignant neoplasm of other parts of uterus; Z99.89 Dependence on other enabling machines and devices
CPT/HCPCS: 36415; 80053; 85025; 81003; 99284; 96374; J0696

== ENCOUNTER → 2019-08-29 | Outpatient (CLI) | payer MEDICARE ==
--- NOTE | 2019-08-29 11:34 | XR ---
EXAMINATION TYPE: XR chest 2V DATE OF EXAM: 08/29/2019 COMPARISON: NONE TECHNIQUE: PA and lateral views submitted. HISTORY: Staging renal cancer. FINDINGS: The lungs are clear and there is no pneumothorax, pleural effusion, or focal pneumonia. Hypertrophic change of the spine. Hyperinflation suggests COPD diffuse osteopenia. Surgical clips in the upper ab domen. IMPRESSION: 1. No acute process.
[2019-08-29 11:35] LABS: ALT 32 U/L (4-34); AST 36 U/L (14-36); African American GFR (CKD) 69 (>60 ml/min/1.73 sqM); Albumin 4.2 g/dL (3.5-5.0); Albumin/Globulin Ratio 1.8; Alkaline Phosphatase 95 U/L (38-126); Anion Gap 7 mmol/L; Blood Urea Nitrogen 21 mg/dL (7-17); Calcium 9.1 mg/dL (8.4-10.2); Carbon Dioxide 26 mmol/L (22-30); Chloride 104 mmol/L (98-107); Globulin 2.4 g/dL; Glucose 87 mg/dL (74-99); Non-African American GFR(CKD) 60 (>60 ml/min/1.73 sqM); Potassium 4.6 mmol/L (3.5-5.1); Sodium 137 mmol/L (137-145); Total Bilirubin 0.5 mg/dL (0.2-1.3); Total Protein 6.6 g/dL (6.3-8.2)
== END | disposition home or self-care (01) ==
LOC: LABWHC1 10:47
PROVIDERS: ATTEND Urology
DX: C64.2 Malignant neoplasm of left kidney, except renal pelvis (principal)
CPT/HCPCS: 36415; 71046; 80053

== ENCOUNTER → 2020-02-24 | Outpatient (CLI) | payer MEDICARE ==
[2020-02-24 11:58] LABS: Albumin 4.5 g/dL (3.5-5.0); Calcium 9.5 mg/dL (8.4-10.2); Potassium 4.6 mmol/L (3.5-5.1); Total Bilirubin 0.9 mg/dL (0.2-1.3); Total Protein 7.6 g/dL (6.3-8.2)
--- NOTE | 2020-02-24 12:56 | XR ---
EXAMINATION TYPE: XR chest 2V DATE OF EXAM: 02/24/2020 COMPARISON: 08/29/2019 HISTORY: 74-year-old female C64.2, kidney cancer TECHNIQUE: Frontal and lateral views FINDINGS: The cardiomediastinal silhouette, aorta, and pulmonary vasculature are within normal limits. Mild hyp erinflation. Lungs and pleural spaces are clear. IMPRESSION: Mild hyperinflation may reflect depth of inspiration or underlying emphysema. Otherwise, no acute car diopulmonary process.
--- NOTE | 2020-02-24 13:00 | CT ---
EXAMINATION TYPE: CT abdomen w con DATE OF EXAM: 02/24/2020 HISTORY: Renal Cancer, history of left-sided nephrectomy. CT DLP: 645.1mGycm Automated Exposure Control for Dose Reduction was Utilized. CONTRAST: CT scan of the abdomen is performed with IV Contrast, patient injected with 50 mL of Isovue 300. COMPARISON: None. FINDINGS: LUNG BASES: No significant abnormality is appreciated. LIVER/GB: No significant abnormality is appreciated. PANCREAS: No significant abnormality is seen. SPLEEN: No significant abnormality is seen. ADRENALS: Surgical clips with nonvisualized left adrenal gland presumed surgically removed. KIDNEYS: Surgical clips with left-sided nephrectomy. Cortical medullary uptake and excretion of right kidney without hydronephrosis or concerning right-sided renal mass. BOWEL: Oral contrast does not reach colonic level. No suspicious small or large bowel dilatation. Div erticulum visualized portion of the left colon LYMPH NODES: No greater than 1cm abdominal lymph nodes are appreciated. OSSEOUS STRUCTURES: No significant abnormality is seen. OTHER: Mild calcified plaque of the aorta extends into branch vessels. IMPRESSION: No suspicious new mass or adenopathy to suggest neoplastic recurrence .
== END | disposition home or self-care (01) ==
LOC: RADCTMAIN 10:42
PROVIDERS: ATTEND Urology
DX: R91.8 Other nonspecific abnormal finding of lung field (principal); C64.2 Malignant neoplasm of left kidney, except renal pelvis; Z88.0 Allergy status to penicillin; Z88.5 Allergy status to narcotic agent; Z91.048 Other nonmedicinal substance allergy status; Z91.09 Other allergy status, other than to drugs and biological substances
CPT/HCPCS: 80053; 71046; 74160; 36415; Q9967

== ENCOUNTER 2020-05-15 08:17 | Emergency (ER) | payer MEDICARE ==
[2020-05-15] MEDS ORDERED: SODIUM CHLORIDE 0.9% 500 ML 500 ML IV STA (08:38)
--- NOTE | 2020-05-15 08:40 | ED ---
General Adult HPI - General Chief complaint: Abdominal Pain Stated complaint: diverticulitis/SOB Time Seen by Provider: 05/15/20 08:20 Source: patient, RN notes reviewed, old records reviewed Mode of arrival: ambulatory Limitations: no limitations - History of Present Illness Initial comments: This is a 74-year-old female presents emergency Department complaining of left lower quadrant pain. Patient states she has a history of diverticulitis and she thinks this feels similar. Patient also notes that she is a little short of breath. Patient denies any fever. Patient denies any nausea vomiting or diarrhea. Patient denies any cough. Patient denies any palpitations. Patient denies any chest pain. Patient states the pain is lasted for 3 days now. Patient denies any dysuria hematuria urinary frequency. - Related Data Home Medications Medication Instructions Recorded Confirmed Ergocalciferol [Vitamin D2] 50,000 unit PO Q7D 02/21/19 02/28/19 Rentchler Supplement 1 tab PO DAILY 02/21/19 02/28/19 Symbiotic, W/ All B Vitamins 1 tab PO DAILY 02/21/19 02/28/19 Thyrotone Supplement 1 tab PO DAILY 02/21/19 02/28/19 Previous Rx's Medication Instructions Recorded Hydrocodone/Acetaminophen [[place] 1 - 2 each PO Q4HR PRN #6 tab 03/01/19 5-325] Ciprofloxacin HCl [Cipro] 500 mg PO Q12HR #20 tablet 05/15/20 metroNIDAZOLE [Flagyl] 500 mg PO QID 10 Days #40 tab 05/15/20 Allergies Allergy/AdvReac Type Severity Reaction Status Date / Time adhesive tape Allergy Rash/Hives Verified 05/15/20 11:14 azithromycin Allergy stomach Verified 05/15/20 11:14 [From Zithromax Z-Brad] pain clarithromycin [From Biaxin] Allergy Nausea & Verified 05/15/20 11:14 Vomiting nickel Allergy Rash/Hives Verified 05/15/20 11:14 Penicillins Allergy Nausea & Verified 05/15/20 11:14 Vomiting COTTONSEED OIL Allergy Rash/Hives Uncoded 05/15/20 11:14 petroleum products Allergy Rash/Hives Uncoded 05/15/20 11:14 Surgical Glue Allergy Rash/Hives Uncoded 05/15/20 11:14 Review of Systems ROS Statement: Those systems with pertinent positive or pertinent negative responses have been documented in the HPI. ROS Other: All systems not noted in ROS Statement are negative. Past Medical History Past Medical History: Asthma, Cancer, Osteoarthritis (OA), Sleep Apnea/CPAP/BIPAP Additional Past Medical History / Comment(s): Uterine CANCER(HYSTERECTOMY DONE), LUMBAR DDD, PAST RT GREAT TOE FX, PAST HYPOGLYCEMIA . HX OF BEING TX W/ METFORMIN FOR A YEAR-STOPPED MEDS 4 MONTHS AGO(APPROX SEP 2016) NO LONGER TAKES MEDS OR CHECKS BS. VARICOSE VEINS,HAYFEVER, SINUS PROBLMES,HAS CPAP BUT DOES'NT USE IT. MONO AGE 23. EXERCISE INDUCED ASTHMA, BRONCHITIS. FUCHS CORNEAL DYSTROPHY RECENTLY DIAGNOSED. AT AGE 28 WAS ON THYROID MEDS FOR 1 YEAR THEN TAKNE OFF. History of Any Multi-Drug Resistant Organisms: None Reported Past Surgical History: Adenoidectomy, Appendectomy, Hysterectomy, Orthopedic Surgery, Tonsillectomy Additional Past Surgical History / Comment(s): bilateral hip replacement at [facility], UPPER DENTAL IMPLANT, 2007 HAD LUMBAR EPIDURAL STEROID INJ, COLONOSCOPY, L4 NERVE BLOCK, left nephrectomy, Past Anesthesia/Blood Transfusion Reactions: Motion Sickness Additional Past Anesthesia/Blood Transfusion Reaction / Comment(s): aspirated during colonoscopy Jan-2018 Past Psychological History: Depression Smoking Status: Former smoker Past Alcohol Use History: None Reported Past Drug Use History: None Reported - Past Family History Mother Family Medical History: Cancer, Rheumatoid Arthritis (RA) Additional Family Medical History / Comment(s): still alive. hx of aaa 2004, skin cancer. Father Family Medical History: Congestive Heart Failure (CHF) Sister(s) Family Medical History: Cancer, Deep Vein Thrombosis (DVT), Pulmonary Embolus Additional Family Medical History / Comment(s): colon cancer General Exam - General Exam Comments Initial Comments: GENERAL: Patient is well-developed and well-nourished. Patient is nontoxic and well- hydrated and is in mild distress. ENT: Neck is soft and supple. No significant lymphadenopathy is noted. Oropharynx is clear. Moist mucous membranes. Neck has full range of motion without eliciting any pain. EYES: The sclera were anicteric and conjunctiva were pink and moist. Extraocular movements were intact and pupils were equal round and reactive to light. Eye lids were unremarkable. PULMONARY: Unlabored respirations. Good breath sounds bilaterally. No audible rales rhonchi or wheezing was noted. CARDIOVASCULAR: Patient has an irregular heartbeat at about 90 beats a minute ABDOMEN: Patient has point tenderness to the left lower quadrant. SKIN: Skin is clear with no lesions or rashes and otherwise unremarkable. NEUROLOGIC: Patient is alert and oriented x3. Cranial nerves II through XII are grossly intact. Motor and sensory are also intact. Normal speech, volume and content. Symmetrical smile. MUSCULOSKELETAL: Normal extremities with adequate strength and full range of motion. No lower extremity swelling or edema. No calf tenderness. LYMPHATICS: No significant lymphadenopathy is noted PSYCHIATRIC: Normal psychiatric evaluation. Limitations: no limitations Course Vital Signs 05/15/20 05/15/20 05/15/20 08: 09:00 09:30 Temperature 97.9 F Pulse Rate 75 73 72 Respiratory 18 19 17 Rate Blood Pressure 134/78 125/64 107/72 O2 Sat by Pulse 97 95 94 L Oximetry 05/15/20 05/15/20 05/15/20 10:00 10:30 11:00 Temperature Pulse Rate 70 70 68 Respiratory 18 18 16 Rate Blood Pressure 108/70 121/66 134/75 O2 Sat by Pulse 95 99 98 Oximetry Medical Decision Making - Medical Decision Making CT of the abdomen and pelvis shows acute diverticulitis with no perforation or abscess formation. CT of the chest shows no PE. Patient will be given antibiotics and discharged home. EKG shows sinus rhythm with occasional PACs at 84 bpm IN interval 156 dresses 72 QT interval 372 QTC is 439. EKG shows no ST segment elevation or depression. - Lab Data Result diagrams: 05/15/20 08:42 05/15/20 08:42 Lab Results 05/15/20 05/15/20 05/15/20 Range/Units 08:42 08:42 08:42 WBC 8.3 (3.8-10.6) k/uL RBC 3.81 (3.80-5.40) m/uL Hgb 12.5 (11.4-16.0) gm/dL Hct 35.3 (34.0-46.0) % MCV 92.6 (80.0-100.0) fL MCH 32.9 (25.0-35.0) pg MCHC 35.6 (31.0-37.0) g/dL RDW 12.3 (11.5-15.5) % Plt Count 235 (150-450) k/uL MPV 7.2 Neutrophils % 72 % Lymphocytes % 19 % Monocytes % 5 % Eosinophils % 3 % Basophils % 1 % Neutrophils # 6.0 (1.3-7.7) k/uL Lymphocytes # 1.6 (1.0-4.8) k/uL Monocytes # 0.4 (0-1.0) k/uL Eosinophils # 0.3 (0-0.7) k/uL Basophils # 0.1 (0-0.2) k/uL D-Dimer 1.21 H (<0.60) mg/L FEU Sodium 139 (137-145) mmol/L Potassium 4.6 (3.5-5.1) mmol/L Chloride 104 (98-107) mmol/L Carbon Dioxide 25 (22-30) mmol/L Anion Gap 10 mmol/L BUN 17 (7-17) mg/dL Creatinine 1.16 H (0.52-1.04) mg/dL Est GFR (CKD-EPI)AfAm 54 (>60 ml/min/1.73 sqM) Est GFR (CKD-EPI)NonAf 46 (>60 ml/min/1.73 sqM) Glucose 115 H (74-99) mg/dL Calcium 9.5 (8.4-10.2) mg/dL Total Bilirubin 1.1 (0.2-1.3) mg/dL AST 17 (14-36) U/L ALT 10 (4-34) U/L Alkaline Phosphatase 94 (38-126) U/L Total Protein 6.7 (6.3-8.2) g/dL Albumin 4.1 (3.5-5.0) g/dL Amylase 84 (30-110) U/L Lipase 294 (23-300) U/L Urine Color Urine Appearance (Clear) Urine pH (5.0-8.0) Ur Specific [place] (1.001-1.035) Urine Protein (Negative) Urine Glucose (UA) (Negative) Urine Ketones (Negative) Urine Blood (Negative) Urine Nitrite (Negative) Urine Bilirubin (Negative) Urine Urobilinogen (<2.0) mg/dL Ur Leukocyte Esterase (Negative) 05/15/20 Range/Units 10:25 WBC (3.8-10.6) k/uL RBC (3.80-5.40) m/uL Hgb (11.4-16.0) gm/dL Hct (34.0-46.0) % MCV (80.0-100.0) fL MCH (25.0-35.0) pg MCHC (31.0-37.0) g/dL RDW (11.5-15.5) % Plt Count (150-450) k/uL MPV Neutrophils % % Lymphocytes % % Monocytes % % Eosinophils % % Basophils % % Neutrophils # (1.3-7.7) k/uL Lymphocytes # (1.0-4.8) k/uL Monocytes # (0-1.0) k/uL Eosinophils # (0-0.7) k/uL Basophils # (0-0.2) k/uL D-Dimer (<0.60) mg/L FEU Sodium (137-145) mmol/L Potassium (3.5-5.1) mmol/L Chloride (98-107) mmol/L Carbon Dioxide (22-30) mmol/L Anion Gap mmol/L BUN (7-17) mg/dL Creatinine (0.52-1.04) mg/dL Est GFR (CKD-EPI)AfAm (>60 ml/min/1.73 sqM) Est GFR (CKD-EPI)NonAf (>60 ml/min/1.73 sqM) Glucose (74-99) mg/dL Calcium (8.4-10.2) mg/dL Total Bilirubin (0.2-1.3) mg/dL AST (14-36) U/L ALT (4-34) U/L Alkaline Phosphatase (38-126) U/L Total Protein (6.3-8.2) g/dL Albumin (3.5-5.0) g/dL Amylase (30-110) U/L Lipase (23-300) U/L Urine Color Yellow Urine Appearance Clear (Clear) Urine pH 6.0 (5.0-8.0) Ur Specific [place] 1.031 (1.001-1.035) Urine Protein Negative (Negative) Urine Glucose (UA) Negative (Negative) Urine Ketones Negative (Negative) Urine Blood Negative (Negative) Urine Nitrite Negative (Negative) Urine Bilirubin Negative (Negative) Urine Urobilinogen <2.0 (<2.0) mg/dL Ur Leukocyte Esterase Negative (Negative) Disposition Clinical Impression: Acute diverticulitis Disposition: HOME SELF-CARE Condition: Good Instructions (If sedation given, give patient instructions): Diverticulitis (ED) Prescriptions: Ciprofloxacin HCl [Cipro] 500 mg PO Q12HR #20 tablet metroNIDAZOLE [Flagyl] 500 mg PO QID 10 Days #40 tab Is patient prescribed a controlled substance at d/c from ED?: No Referrals: Guero Guo DO [Primary Care Provider] - 1-2 days Time of Disposition: 11:25
[2020-05-15 08:59] LABS: Basophils # (A) 0.1 k/uL (0-0.2); Basophils % (A) 1 %; Eosinophils # (A) 0.3 k/uL (0-0.7); Eosinophils % (A) 3 %; HCT 35.3 % (34.0-46.0); HGB 12.5 gm/dL (11.4-16.0); Lymphocytes # (A) 1.6 k/uL (1.0-4.8); Lymphocytes % (A) 19 %; MCH 32.9 pg (25.0-35.0); MCHC 35.6 g/dL (31.0-37.0); MCV 92.6 fL (80.0-100.0); Mean Platelet Volume 7.2; Monocytes # (A) 0.4 k/uL (0-1.0); Monocytes % (A) 5 %; Neutrophils % (A) 72 %; Platelet Count 235 k/uL (150-450); RBC 3.81 m/uL (3.80-5.40); RDW 12.3 % (11.5-15.5); WBC 8.3 k/uL (3.8-10.6)
[2020-05-15 09:08] LABS: Albumin 4.1 g/dL (3.5-5.0); Calcium 9.5 mg/dL (8.4-10.2); Potassium 4.6 mmol/L (3.5-5.1); Total Bilirubin 1.1 mg/dL (0.2-1.3); Total Protein 6.7 g/dL (6.3-8.2)
--- NOTE | 2020-05-15 10:13 | CT ---
EXAMINATION TYPE: CT abdomen pelvis w con DATE OF EXAM: 05/15/2020 COMPARISON: 02/14/2020 INDICATION: Left lower quadrant pain. History of diverticulitis DLP: 1206.8 mGycm, Automated exposure control for dose reduction was used. CONTRAST: 50 mL of Isovue 300. Study performed without Oral Contrast TECHNIQUE: Axial images were obtained from above the diaphragm to the pubic rami in the axial plane a t 5 mm thick sections. Reconstructed images are reviewed on the computer in the coronal plane. FINDINGS: Limited CT sections are obtained the lung bases. The lung bases are clear. Coronary artery calcific ation is present. Small hiatal hernia is not excluded. CT ABDOMEN: Liver: Normal Spleen: Normal Pancreas: Normal Adrenal glands: Right adrenal gland is normal. Left adrenal gland is not identified. Gallbladder: Normal Kidneys: Left kidney appears surgically absent. Right kidney appears normal without masses cyst or hy dronephrosis. Delayed images were obtained through the kidney, which remains unremarkable. Aorta: Vascular calcification is within the aorta. Inferior vena cava: Normal. CT PELVIS: The study is performed without oral contrast limiting evaluation. A few scattered diverticuli are wit hin the sigmoid colon. There are some mild inflammatory changes adjacent to the descending colon sigm oid colon junction compatible some mild diverticulitis. No free air is evident. No abscess formation is evident. Appendix: Not visualized. No suspicious inflammatory change or dilated tubular structure is evident. Urinary bladder: Not visualized. There is limitation in the pelvis due to bilateral hip prosthesis be ing hardening artifact. Genitourinary structures: Uterus and ovaries are not identified. Osseous structures: No suspicious lytic or sclerotic lesions are evident. Facet degenerative changes are within the lumbar spine. IMPRESSIONS: 1. Inflammatory changes with a few diverticuli the descending colon sigmoid colon junction compatibl e with acute diverticulitis.
[2020-05-15] MEDS ORDERED: SODIUM CHLORIDE 0.9% 500 ML 500 ML IV ONE (10:29)
[2020-05-15 11:04] LABS: Appearance,Urine Clear (Clear); Bilirubin,Urine Negative (Negative); Blood,Urine Negative (Negative); Color,Urine Yellow; Glucose,Urine (UA) Negative (Negative); Ketones,Urine Negative (Negative); Leukocyte Esterase,Urine Negative (Negative); Nitrite,Urine Negative (Negative); Protein,Urine Negative (Negative); Specific Gravity,Urine 1.031 (1.001-1.035); Urobilinogen,Urine <2.0 mg/dL (<2.0)
--- NOTE | 2020-05-15 11:16 | CT ---
CT CHEST FOR PULMONARY EMBOLISM. EXAMINATION TYPE: CT chest angio for PE DATE OF EXAM: 05/15/2020 INDICATION: Elevated D dimer CT DLP: 282.6 mGycm, Automated exposure control for dose reduction was used. CONTRAST: Patient injected with 67 mL of Isovue 370. COMPARISON: None TECHNIQUE: CT of the chest is performed on a spiral scan at 2 mm thick sections. Study is performed with intravenous contrast timed for evaluation for pulmonary embolism. This will limit additional po rtions of the evaluation. 3-D MIP images reconstructed by the technologist are reviewed on the compu ter in the coronal and sagittal planes. FINDINGS: No persistent filling defects are evident to suggest an acute pulmonary embolism. No mediastinal or hilar adenopathy enlarged by CT criteria is evident. The ascending aorta diameter at the level of the main pulmonary artery is 2.2 cm. The main pulmonary artery diameter at the bifur cation is 2.5 cm. Lung windows are clear. Limited CT section through the upper abdomen are unremarkable. IMPRESSIONS: 1. No acute pulmonary embolism.
[2020-05-15 11:54] VITALS: BP 135/67; PULSE 71; RESP 18; TEMP 97.8
== END 2020-05-15 11:54 | disposition home or self-care (01) ==
LOC: EC 08:17
DX: K57.92 Diverticulitis of intestine, part unspecified, without perforation or abscess without bleeding (principal); G47.30 Sleep apnea, unspecified; Z79.899 Other long term (current) drug therapy; Z91.048 Other nonmedicinal substance allergy status; Z88.1 Allergy status to other antibiotic agents; Z88.0 Allergy status to penicillin; Z91.018 Allergy to other foods; Z88.8 Allergy status to other drugs, medicaments and biological substances; Z96.643 Presence of artificial hip joint, bilateral; Z90.89 Acquired absence of other organs; Z90.710 Acquired absence of both cervix and uterus; Z87.891 Personal history of nicotine dependence; Z99.89 Dependence on other enabling machines and devices
CPT/HCPCS: 36415; 93005; 85379; 80053; 82150; 83690; 85025; 81003; 71275; 74177; 99285; 96360; 96361 ×2; Q9967 ×2

== ENCOUNTER → 2020-08-31 | Outpatient (CLI) | payer MEDICARE ==
--- NOTE | 2020-08-31 16:12 | XR ---
EXAMINATION TYPE: XR chest 2V DATE OF EXAM: 08/31/2020 COMPARISON: 02/24/2020 HISTORY: 74-year-old female D4 9.4 TECHNIQUE: Frontal and lateral views FINDINGS: The cardiomediastinal silhouette, aorta, and pulmonary vasculature are within normal limits. Lungs an d pleural spaces are clear. IMPRESSION: No acute cardiopulmonary process.
[2020-08-31 18:59] LABS: African American GFR (CKD) 51.2 (60.0-200.0); Albumin 4.4 g/dL (3.80-4.90); Albumin/Globulin Ratio 1.91 (1.60-3.17); BUN/Creat Ratio 19.17 Ratio (12.00-20.00); Calcium 9.4 mg/dL (8.7-10.3); Globulin 2.3 g/dL (1.6-3.3); Non-African American GFR(CKD) 44.2 (60.0-200.0); Potassium 4.1 mmol/L (3.5-5.5); Total Bilirubin 0.7 mg/dL (0.3-1.2); Total Protein 6.7 g/dL (6.2-8.2)
== END | disposition home or self-care (01) ==
LOC: LABWHC1 15:03
PROVIDERS: ATTEND Urology
DX: C64.2 Malignant neoplasm of left kidney, except renal pelvis (principal); D49.4 Neoplasm of unspecified behavior of bladder
CPT/HCPCS: 36415; 71046; 80053

== ENCOUNTER 2020-10-22 00:55 | Emergency (ER) | payer MEDICARE ==
[2020-10-22] MEDS ORDERED: ONDANSETRON 4 MG/2 ML VIAL IVP STA (01:28)
[2020-10-22] MEDS ORDERED: SODIUM CHLORIDE 0.9% 1,000 ML IV STA (01:28)
[2020-10-22] MEDS ORDERED: MORPHINE SULFATE 4 MG/ML SYRINGE IV STA (01:28)
--- NOTE | 2020-10-22 01:29 | ED ---
Abdominal Pain HPI - General Chief Complaint: Abdominal Pain Stated Complaint: Abd Pain Time Seen by Provider: 10/22/20 01:28 Source: patient, RN notes reviewed, old records reviewed Mode of arrival: ambulatory Limitations: no limitations - History of Present Illness Initial Comments: This is a 74-year-old female to emergency department today. Patient resents today for evaluation of abdominal pain. Abdominal pain is suprapubic left lower quadrant patient does have history of diverticulitis. Patient states she is sinus to liquid diet home and had no improvement, patient has history of diverticulitis. Otherwise no active nausea vomiting, no fevers. Sensation states she may have helped warm with fever or chills at home. Patient is surgical history is positive for hysterectomy and prior colonoscopy MD Complaint: abdominal pain -: days(s) Location: LLQ, suprapubic Radiation: LLQ Migration to: suprapubic Severity: moderate Severity scale (1-10): 4 Quality: cramping, aching Consistency: intermittent Improves With: nothing Worsens With: nothing Associated Symptoms: nausea Treatments Prior to Arrival: other (none) - Related Data Home Medications Medication Instructions Recorded Confirmed Ergocalciferol [Vitamin D2] 50,000 unit PO TH 02/21/19 05/15/20 Braman Supplement 1 tab PO HS 02/21/19 05/15/20 Thyrotone Supplement 1 tab PO DAILY 02/21/19 05/15/20 Circutone Supplement 1 tab PO DAILY 05/15/20 05/15/20 Immutone Supplement 1 tab PO DAILY 05/15/20 05/15/20 Vitamin B (Unknown Strength) 1 tab PO HS 05/15/20 05/15/20 Zeaxanthin Eye Supplement 1 tab PO HS 05/15/20 05/15/20 Vtjq-Slyliaorl-Jveozgs B Supplement 1 tab PO DAILY 05/15/20 05/15/20 Previous Rx's Medication Instructions Recorded Ciprofloxacin HCl [Cipro] 500 mg PO Q12HR #20 tablet 05/15/20 metroNIDAZOLE [Flagyl] 500 mg PO QID 10 Days #40 tab 05/15/20 Allergies Allergy/AdvReac Type Severity Reaction Status Date / Time adhesive tape Allergy Rash/Hives Verified 10/22/20 01:02 azithromycin Allergy stomach Verified 10/22/20 01:02 [From Zithromax Z-Brad] pain clarithromycin [From Biaxin] Allergy Nausea & Verified 10/22/20 01:02 Vomiting nickel Allergy Rash/Hives Verified 10/22/20 01:02 Penicillins Allergy Nausea & Verified 10/22/20 01:02 Vomiting COTTONSEED OIL Allergy Rash/Hives Uncoded 10/22/20 01:02 petroleum products Allergy Rash/Hives Uncoded 10/22/20 01:02 Surgical Glue Allergy Rash/Hives Uncoded 10/22/20 01:02 Review of Systems ROS Statement: Those systems with pertinent positive or pertinent negative responses have been documented in the HPI. ROS Other: All systems not noted in ROS Statement are negative. Past Medical History Past Medical History: Asthma, Cancer, Osteoarthritis (OA), Sleep Apnea/CPAP/BIPAP Additional Past Medical History / Comment(s): Uterine CANCER(HYSTERECTOMY DONE), LUMBAR DDD, PAST RT GREAT TOE FX, PAST HYPOGLYCEMIA . HX OF BEING TX W/ METFORMIN FOR A YEAR-STOPPED MEDS 4 MONTHS AGO(APPROX SEP 2016) NO LONGER TAKES MEDS OR CHECKS BS. VARICOSE VEINS,HAYFEVER, SINUS PROBLMES,HAS CPAP BUT DOES'NT USE IT. MONO AGE 23. EXERCISE INDUCED ASTHMA, BRONCHITIS. FUCHS CORNEAL DYSTROPHY RECENTLY DIAGNOSED. AT AGE 28 WAS ON THYROID MEDS FOR 1 YEAR THEN TAKNE OFF. History of Any Multi-Drug Resistant Organisms: None Reported Past Surgical History: Adenoidectomy, Appendectomy, Hysterectomy, Orthopedic Surgery, Tonsillectomy Additional Past Surgical History / Comment(s): bilateral hip replacement at [facility], UPPER DENTAL IMPLANT, 2008 HAD LUMBAR EPIDURAL STEROID INJ, COLONOSCOPY, L4 NERVE BLOCK, left nephrectomy, Past Anesthesia/Blood Transfusion Reactions: Motion Sickness Additional Past Anesthesia/Blood Transfusion Reaction / Comment(s): aspirated during colonoscopy Jan-2018 Past Psychological History: Depression Smoking Status: Former smoker Past Alcohol Use History: None Reported Past Drug Use History: None Reported - Past Family History Mother Family Medical History: Cancer, Rheumatoid Arthritis (RA) Additional Family Medical History / Comment(s): still alive. hx of aaa 2005, skin cancer. Father Family Medical History: Congestive Heart Failure (CHF) Sister(s) Family Medical History: Cancer, Deep Vein Thrombosis (DVT), Pulmonary Embolus Additional Family Medical History / Comment(s): colon cancer General Exam Limitations: no limitations General appearance: alert, in no apparent distress Head exam: Present: atraumatic, normocephalic, normal inspection Eye exam: Present: normal appearance, PERRL, EOMI. Absent: scleral icterus, conjunctival injection, periorbital swelling ENT exam: Present: normal exam, mucous membranes moist Neck exam: Present: normal inspection. Absent: tenderness, meningismus, lymphadenopathy Respiratory exam: Present: normal lung sounds bilaterally. Absent: respiratory distress, wheezes, rales, rhonchi, stridor Cardiovascular Exam: Present: regular rate, normal rhythm, normal heart sounds. Absent: systolic murmur, diastolic murmur, rubs, gallop, clicks GI/Abdominal exam: Present: soft, tenderness, normal bowel sounds. Absent: distended, guarding, rebound, rigid Extremities exam: Present: normal inspection, full ROM, normal capillary refill. Absent: tenderness, pedal edema, joint swelling, calf tenderness Back exam: Present: normal inspection Neurological exam: Present: alert, oriented X3, CN II-XII intact Psychiatric exam: Present: normal affect, normal mood Skin exam: Present: warm, dry, intact, normal color. Absent: rash Course Vital Signs 10/22/20 10/22/20 00:55 03:00 Temperature 98.3 F 99.0 F Pulse Rate 102 H 85 Respiratory 18 16 Rate Blood Pressure 133/77 145/74 O2 Sat by Pulse 95 94 L Oximetry - Reevaluation(s) Reevaluation #1: 10/22/20 02:45 Medical record is reviewed Reevaluation #2: 10/22/20 02:46 Pain is improved Medical Decision Making - Lab Data Result diagrams: 10/22/20 01:41 10/22/20 01:41 Lab Results 10/22/20 10/22/20 10/22/20 Range/Units 01:41 01:41 01:41 WBC 8.5 (3.8-10.6) k/uL RBC 4.16 (3.80-5.40) m/uL Hgb 13.5 (11.4-16.0) gm/dL Hct 39.2 (34.0-46.0) % MCV 94.1 (80.0-100.0) fL MCH 32.5 (25.0-35.0) pg MCHC 34.5 (31.0-37.0) g/dL RDW 11.8 (11.5-15.5) % Plt Count 195 (150-450) k/uL MPV 7.5 Neutrophils % 83 % Lymphocytes % 11 % Monocytes % 4 % Eosinophils % 2 % Basophils % 0 % Neutrophils # 7.0 (1.3-7.7) k/uL Lymphocytes # 0.9 L (1.0-4.8) k/uL Monocytes # 0.4 (0-1.0) k/uL Eosinophils # 0.2 (0-0.7) k/uL Basophils # 0.0 (0-0.2) k/uL Sodium 135 L (137-145) mmol/L Potassium 4.0 (3.5-5.1) mmol/L Chloride 102 (98-107) mmol/L Carbon Dioxide 22 (22-30) mmol/L Anion Gap 11 mmol/L BUN 18 H (7-17) mg/dL Creatinine 1.10 H (0.52-1.04) mg/dL Est GFR (CKD-EPI)AfAm 57 (>60 ml/min/1.73 sqM) Est GFR (CKD-EPI)NonAf 49 (>60 ml/min/1.73 sqM) Glucose 141 H (74-99) mg/dL Plasma Lactic Acid [place] 0.7 (0.7-2.0) mmol/L Calcium 9.4 (8.4-10.2) mg/dL Total Bilirubin 1.1 (0.2-1.3) mg/dL AST 21 (14-36) U/L ALT 11 (4-34) U/L Alkaline Phosphatase 124 (38-126) U/L Troponin I (0.000-0.034) ng/mL Total Protein 6.9 (6.3-8.2) g/dL Albumin 4.2 (3.5-5.0) g/dL Amylase 56 (30-110) U/L Lipase 176 (23-300) U/L Urine Color Urine Appearance (Clear) Urine pH (5.0-8.0) Ur Specific [place] (1.001-1.035) Urine Protein (Negative) Urine Glucose (UA) (Negative) Urine Ketones (Negative) Urine Blood (Negative) Urine Nitrite (Negative) Urine Bilirubin (Negative) Urine Urobilinogen (<2.0) mg/dL Ur Leukocyte Esterase (Negative) Urine RBC (0-5) /hpf Urine WBC (0-5) /hpf Ur Squamous Epith Cells (0-4) /hpf Hyaline Casts (0-2) /lpf Urine Mucus (None) /hpf 10/22/20 10/22/20 Range/Units 01:41 01:54 WBC (3.8-10.6) k/uL RBC (3.80-5.40) m/uL Hgb (11.4-16.0) gm/dL Hct (34.0-46.0) % MCV (80.0-100.0) fL MCH (25.0-35.0) pg MCHC (31.0-37.0) g/dL RDW (11.5-15.5) % Plt Count (150-450) k/uL MPV Neutrophils % % Lymphocytes % % Monocytes % % Eosinophils % % Basophils % % Neutrophils # (1.3-7.7) k/uL Lymphocytes # (1.0-4.8) k/uL Monocytes # (0-1.0) k/uL Eosinophils # (0-0.7) k/uL Basophils # (0-0.2) k/uL Sodium (137-145) mmol/L Potassium (3.5-5.1) mmol/L Chloride (98-107) mmol/L Carbon Dioxide (22-30) mmol/L Anion Gap mmol/L BUN (7-17) mg/dL Creatinine (0.52-1.04) mg/dL Est GFR (CKD-EPI)AfAm (>60 ml/min/1.73 sqM) Est GFR (CKD-EPI)NonAf (>60 ml/min/1.73 sqM) Glucose (74-99) mg/dL Plasma Lactic Acid [place] (0.7-2.0) mmol/L Calcium (8.4-10.2) mg/dL Total Bilirubin (0.2-1.3) mg/dL AST (14-36) U/L ALT (4-34) U/L Alkaline Phosphatase (38-126) U/L Troponin I <0.012 (0.000-0.034) ng/mL Total Protein (6.3-8.2) g/dL Albumin (3.5-5.0) g/dL Amylase (30-110) U/L Lipase (23-300) U/L Urine Color Light Yellow Urine Appearance Clear (Clear) Urine pH 5.0 (5.0-8.0) Ur Specific [place] 1.009 (1.001-1.035) Urine Protein Negative (Negative) Urine Glucose (UA) Negative (Negative) Urine Ketones 1+ H (Negative) Urine Blood Negative (Negative) Urine Nitrite Negative (Negative) Urine Bilirubin Negative (Negative) Urine Urobilinogen <2.0 (<2.0) mg/dL Ur Leukocyte Esterase Small H (Negative) Urine RBC <1 (0-5) /hpf Urine WBC 1 (0-5) /hpf Ur Squamous Epith Cells <1 (0-4) /hpf Hyaline Casts 1 (0-2) /lpf Urine Mucus Rare H (None) /hpf Disposition Clinical Impression: Abdominal pain, Diverticulitis, Acute diverticulitis Disposition: HOME SELF-CARE Condition: Fair Instructions (If sedation given, give patient instructions): Diverticulitis (ED) Is patient prescribed a controlled substance at d/c from ED?: No Referrals: Guero Guo DO [Primary Care Provider] - 1-2 days
[2020-10-22 01:56] LABS: Basophils % (A) 0 %; Eosinophils # (A) 0.2 k/uL (0-0.7); Eosinophils % (A) 2 %; HCT 39.2 % (34.0-46.0); HGB 13.5 gm/dL (11.4-16.0); Lymphocytes # (A) 0.9 k/uL (1.0-4.8); Lymphocytes % (A) 11 %; MCH 32.5 pg (25.0-35.0); MCHC 34.5 g/dL (31.0-37.0); MCV 94.1 fL (80.0-100.0); Mean Platelet Volume 7.5; Monocytes # (A) 0.4 k/uL (0-1.0); Monocytes % (A) 4 %; Neutrophils % (A) 83 %; Platelet Count 195 k/uL (150-450); RBC 4.16 m/uL (3.80-5.40); RDW 11.8 % (11.5-15.5); WBC 8.5 k/uL (3.8-10.6)
[2020-10-22 02:26] LABS: Appearance,Urine Clear (Clear); Bilirubin,Urine Negative (Negative); Blood,Urine Negative (Negative); Color,Urine Light Yellow; Glucose,Urine (UA) Negative (Negative); Hyaline Casts,Urine 1 /lpf (0-2); Ketones,Urine 1+ (Negative); Leukocyte Esterase,Urine Small (Negative); Mucus,Urine Rare /hpf; Nitrite,Urine Negative (Negative); Protein,Urine Negative (Negative); RBC,Urine <1 /hpf (0-5); Specific Gravity,Urine 1.009 (1.001-1.035); Squamous Epithelial Cell,Urine <1 /hpf (0-4); Urobilinogen,Urine <2.0 mg/dL (<2.0); WBC,Urine 1 /hpf (0-5)
[2020-10-22 02:28] LABS: Albumin 4.2 g/dL (3.5-5.0); Calcium 9.4 mg/dL (8.4-10.2); Total Bilirubin 1.1 mg/dL (0.2-1.3); Total Protein 6.9 g/dL (6.3-8.2)
[2020-10-22] MEDS ORDERED: LEVOFLOXACIN 750MG-D5W PMX 750 MG in DEXTROSE/WATER 1 150ML.BAG IVPB STA (03:01)
[2020-10-22] MEDS ORDERED: metroNIDAZOLE-NS PMX 500 MG in SALINE 1 100ML.BAG IVPB STA (03:01)
--- NOTE | 2020-10-22 03:01 | CT ---
EXAMINATION TYPE: CT abdomen pelvis wo con DATE OF EXAM: 10/22/2020 COMPARISON: 05/15/2020 HISTORY: abd pain with N&D CT DLP: 976.2 mGycm Automated exposure control for dose reduction was used. Lung bases are clear. There is no pleural effusion. Heart size is normal. There is no pericardial eff usion. There is small hiatal hernia. Liver spleen stomach pancreas appear intact. The bile ducts are not dilated. Gallbladder appears normal. There is no adrenal mass. There are clips from left nephrectomy. Right kidney shows normal size. Ther e is no hydronephrosis. There is no retroperitoneal adenopathy. Bladder distends smoothly. Detail in the pelvis limited by metal artifact from bilateral hip prosthesis. There is fat stranding around the mid sigmoid colon. There are multiple sigmoid diverticula with wall thickening. There is no ascites or free air. There is no sign of a bowel obstruction. Appendix is not seen. There is no sign of thickened appendix. Lumbar vertebra have normal alignment. Disc spaces are fairly norm al. There is no compression fracture. Bony pelvis is intact. Hip joints are intact. IMPRESSION: There is diverticulitis of the mid sigmoid colon in different location than the previous exam. There is clearing of the diverticulitis of the proximal sigmoid colon compared to old exam. No drainable fl uid collection.
[2020-10-22 03:05] VITALS: BP 145/74; PULSE 85; RESP 16; TEMP 99
[2020-10-22] MEDS ORDERED: CIPROFLOXACIN HCL 500 MG TAB PO STA (03:29)
[2020-10-22] MEDS ORDERED: ACET/COD 300 MG/30 MG STARTER PACK 6 TAB BTL PO STA (03:31)
[2020-10-22] MEDS ORDERED: ONDANSETRON 4 MG ODT STARTER PACK 2 TAB BTL PO STA (03:31)
== END 2020-10-22 03:43 | disposition home or self-care (01) ==
LOC: EC 00:55
DX: K57.32 Diverticulitis of large intestine without perforation or abscess without bleeding (principal); J45.909 Unspecified asthma, uncomplicated; Z87.891 Personal history of nicotine dependence; Z79.899 Other long term (current) drug therapy; Z90.5 Acquired absence of kidney; Z96.643 Presence of artificial hip joint, bilateral
CPT/HCPCS: 36415; 80053; 82150; 83605; 83690; 84484; 85025; 81001; 74176; 96374; 96361; 99284; J2405

== ENCOUNTER → 2021-07-20 | Outpatient (CLI) | payer MEDICARE ==
[2021-07-20 08:48] VITALS: BP 159/89; PULSE 89; RESP 17; TEMP 98.3
--- NOTE | 2021-07-20 09:52 | P.HPOB ---
History of Present Illness H&P Date: 07/20/21 Chief Complaint: The patient is here for her routine gynecologic exam. This is a 75-year-old with an LMP of 2001. She is here to establish with this office. It has been many years since her last pelvic exam. She is status post NEVA/BSO for stage I uterine cancer in 2001. She is without gynecologic complaints. She states she is refusing mammograms for personal reasons. Review of Systems She has gained about 10 pounds over the last year. This is after she had lost weight. She denies cardiac or GI problems. Respiratory: Some ALLERGY and asthma symptoms. Past Medical History Past Medical History: Asthma, Cancer, Osteoarthritis (OA), Sleep Apnea/CPAP/BIPAP Additional Past Medical History / Comment(s): Uterine CANCER(HYSTERECTOMY DONE)2001, left renal cancer 2019, LUMBAR DDD, PAST RT GREAT TOE FX, PAST HYPOGLYCEMIA . VARICOSE VEINS,HAYFEVER, SINUS PROBLMES,HAS CPAP BUT DOES'NT USE IT. MONO AGE 23. EXERCISE INDUCED ASTHMA, BRONCHITIS. FUCHS CORNEAL DYSTROPHY. AT AGE 28 WAS ON THYROID MEDS FOR 1 YEAR THEN TAKNE OFF. DIVERTICULITOUS. Past RN FLOAT history: Genital HSV with infrequent outbreaks. History of Any Multi-Drug Resistant Organisms: None Reported Past Surgical History: Adenoidectomy, Appendectomy, Hysterectomy, Orthopedic Surgery, Tonsillectomy Additional Past Surgical History / Comment(s): bilateral hip replacement at [facility], UPPER DENTAL IMPLANT, 2007 HAD LUMBAR EPIDURAL STEROID INJ, COLONOSCOPY, L4 NERVE BLOCK, left nephrectomy. NEVA/BSO 2001. Colonoscopy 2016. Past Anesthesia/Blood Transfusion Reactions: Motion Sickness Additional Past Anesthesia/Blood Transfusion Reaction / Comment(s): aspirated during colonoscopy Jan-2018 Past Psychological History: Depression (She denies current depression.) Additional Psychological History / Comment(s): pt lives alone in 2 story home but stays on main level. has 2 pet cats. has cane, raised toilet seats and grab bar installed in shower. Smoking Status: Former smoker Past Alcohol Use History: None Reported Additional Past Alcohol Use History / Comment(s): started smoking at age 18(1963) and quit 1975 by time quit smoking was smoking almost 2 ppd. Quit drinking alcohol in 1977. Past Drug Use History: Marijuana Additional Drug Use History / Comment(s): Quit marijuana use in 1975. Additional History: She has been a since 1974. She has not been sexually active since 1985. She is retired. - Past Family History Mother Family Medical History: Cancer, Rheumatoid Arthritis (RA) Additional Family Medical History / Comment(s): still alive. hx of aaa 2005, skin cancer. Maternal grandmother had gastric cancer. Father Family Medical History: Congestive Heart Failure (CHF) Sister(s) Family Medical History: Cancer, Deep Vein Thrombosis (DVT), Pulmonary Embolus Additional Family Medical History / Comment(s): colon cancer Medications and Allergies Home Medications Medication Instructions Recorded Confirmed Type Ergocalciferol [Vitamin D2] 50,000 unit PO TH 02/21/19 07/20/21 History [place] Supplement 1 tab PO HS 02/21/19 07/20/21 History Thyrotone Supplement 1 tab PO DAILY 02/21/19 07/20/21 History Vitamin B (Unknown Strength) 1 tab PO HS 05/15/20 07/20/21 History Zeaxanthin Eye Supplement 1 tab PO HS 05/15/20 07/20/21 History Dmsw-Dkozxvhfw-Bdesdbe B Supplement 1 tab PO DAILY 05/15/20 07/20/21 History Ascorbic Acid [Vitamin C] 500 mg PO DAILY 07/20/21 07/20/21 History Lecithin, Soy [Lecithin] 400 mg PO DAILY 07/20/21 07/20/21 History Allergies Allergy/AdvReac Type Severity Reaction Status Date / Time adhesive tape Allergy Rash/Hives Verified 07/20/21 08:41 azithromycin Allergy stomach Verified 07/20/21 08:41 [From Zithromax Z-Brad] pain clarithromycin [From Biaxin] Allergy Nausea & Verified 07/20/21 08:41 Vomiting nickel Allergy Rash/Hives Verified 07/20/21 08:41 Penicillins Allergy Nausea & Verified 07/20/21 08:41 Vomiting COTTONSEED OIL Allergy Rash/Hives Uncoded 07/20/21 08:41 petroleum products Allergy Rash/Hives Uncoded 07/20/21 08:41 Surgical Glue Allergy Rash/Hives Uncoded 07/20/21 08:41 Exam Vital Signs Temp Pulse Resp BP Pulse Ox 07/20/21 08:45 98.3 F 89 17 159/89 96 Intake and Output 07/19/21 07/20/21 07/20/21 22:59 06:59 14:59 Other: Weight 89.811 kg Height 5 feet 6 inches, weight 198 pounds, BMI 32.0. This is a well-developed well-nourished white female who is alert and oriented times 3 in no acute distress. HEENT: Within normal limits. NECK: Supple without mass or thyromegaly. CHEST AND LUNGS: Clear to auscultation. HEART: Regular rate and rhythm. BREASTS: Are without mass or discharge. AXILLARY EXAM: Negative for adenopathy. BACK: Negative for CVA tenderness. ABDOMEN: Soft, nontender, without palpable masses. PELVIC EXAM: External genitalia appears normal with mild atrophy. Vagina appears normal mild atrophy. There is no evidence of prolapse. Bimanual examination is negative for mass or tenderness. RECTAL EXAM: Rectovaginal exam is negative for mass or tenderness and is negative for occult blood. EXTREMITIES: Nontender. IMPRESSION: 1. 75-year-old menopausal female status post NEVA/BSO for stage I uterine cancer in 2001 with no evidence of recurrence. 2. Elevated blood pressure. PLAN: 1. Pap smear of the vaginal cuff was performed because of her history of uterine cancer. If this is negative, Pap smears will be discontinued. 2. Self breast awareness was discussed with the patient. We have also discussed symptoms associated with inflammatory breast cancer. 3. Screening mammogram was recommended. The patient refused mammogram stating that she does not feel the benefits outweighed the discomfort. We have had a long discussion regarding the importance of mammography to detect early breast cancer. She states she will consider this. The order slip was given to the patient for this. 4. Osteoporosis prevention was discussed. I have stressed the importance of adequate calcium, vitamin D and regular exercise. Recommended amounts of calcium and vitamin D were also discussed. I recommended bone density screening since it has been many years. She states she probably would not take medication if she had osteoporosis. She states she will consider bone density testing. The order slip was given to the patient for this. 5. I recommended screening colonoscopy and she believes she is due for this. She will discuss this with her PCP. 6. We have discussed her elevated blood pressure. I have recommended that she check her own blood pressure at home on a regular basis since she does have a blood pressure cuff. She will follow up with her PCP for blood pressure elevations. 7. She has completed her Covid vaccination series and she did have Covid in the past. 8. She was advised to return in one year for her annual well woman exam.
== END ==
LOC: WWCWWP 08:33
PROVIDERS: ATTEND Obstetrics & Gynecology
DX: Z01.419 Encounter for gynecological examination (general) (routine) without abnormal findings (principal); F32.A Depression, unspecified; J45.990 Exercise induced bronchospasm; M19.90 Unspecified osteoarthritis, unspecified site; Z87.891 Personal history of nicotine dependence; Z88.0 Allergy status to penicillin; Z90.722 Acquired absence of ovaries, bilateral; Z78.0 Asymptomatic menopausal state; Z90.710 Acquired absence of both cervix and uterus; R03.0 Elevated blood-pressure reading, without diagnosis of hypertension; Z85.42 Personal history of malignant neoplasm of other parts of uterus; Z79.899 Other long term (current) drug therapy; Z91.048 Other nonmedicinal substance allergy status; Z88.1 Allergy status to other antibiotic agents; Z88.9 Allergy status to unspecified drugs, medicaments and biological substances; Z91.09 Other allergy status, other than to drugs and biological substances

== ENCOUNTER → 2023-03-01 | Outpatient (CLI) | payer MEDICARE ==
--- NOTE | 2023-03-02 08:52 | MM ---
Reason for Exam: Screening (asymptomatic). Last mammogram was performed 15 year(s) and 10 month(s) ago. Patient History: Menarche at age 12. Patient has no children. Left ovary removed at age 56. Right ovary removed at age 56. Hysterectomy at age 56. Postmenopausal. Endometrial cancer, age 56. Other cancer, age 73. Estrogen for 8 months from age 49 until age 49. Progesterone for 8 months from age 49 until age 49. Hormonal Contraceptives for 3 months from age 26 until age 26. Maternal cousin had breast cancer. Risk Values: Adele 5 year model risk: 1.9%. NCI Lifetime model risk: 3.4%. Prior Study Comparison: 12/17/2004 Bilateral Screening Mammogram, [facility]. 01/18/2006 Bilateral Screening Mammogram, [facility]. 04/16/2007 Bilateral Screening Mammogram, [facility]. Tissue Density: There are scattered fibroglandular densities. Findings: Analyzed By CAD. There is no suspicious group of microcalcifications or new suspicious mass. Overall Assessment: Negative, BI-RAD 1 Management: Screening Mammogram of both breasts in [address] [facility] will attempt to contact patient to return for supplemental views and ultrasound if indicated. Patient should continue monthly self-breast exams. A clinical breast exam by your physician is recommended on an annual basis. This exam should not preclude additional follow-up of suspicious palpable abnormalities. Note on Adele scores and lifetime risk: 1. A Adele score greater than 3% is considered moderate risk. If this is the case, consider specialist referral to assess eligibility for a risk reducing agent. 2. If overall lifetime risk for the development of breast cancer is 20% or higher, the patient may qualify for future screening with alternating mammogram and breast MRI. Electronically signed and approved by: Vick Bajwa DO
== END | disposition home or self-care (01) ==
LOC: RADMAMWWP 13:51
PROVIDERS: ATTEND Family Medicine
DX: Z12.31 Encounter for screening mammogram for malignant neoplasm of breast (principal); Z80.3 Family history of malignant neoplasm of breast; Z78.0 Asymptomatic menopausal state
CPT/HCPCS: 77063; 77067

== ENCOUNTER → 2023-03-03 | Outpatient (CLI) | payer MEDICARE ==
[2023-03-03 16:02] LABS: African American GFR (CKD) 69 (>60 ml/min/1.73 sqM); Blood Urea Nitrogen 12 mg/dL (7-17); Non-African American GFR(CKD) 60 (>60 ml/min/1.73 sqM)
--- NOTE | 2023-03-03 16:45 | CT ---
EXAMINATION TYPE: CT abdomen pelvis w con DATE OF EXAM: 03/03/2023 COMPARISON: 05/15/2020 HISTORY: abdominal pain, weight loss CT DLP: 924.8 mGycm Automated exposure control for dose reduction was used. TECHNIQUE: Helical acquisition of images was performed from the lung bases through the pelvis. CONTRAST: Performed with Oral Contrast and with IV Contrast, patient injected with 100 mL of Isovue 300. FINDINGS: The lung bases are clear. Gallbladder is normal and there is no biliary ductal dilatation.. There is no focal mass or organomegaly involving the liver, pancreas, spleen or adrenal glands. There are surgical absence of the left kidney. There is no right renal mass or hydronephrosis. The ca liber of the abdominal aorta is normal and there is no retroperitoneal adenopathy There is marked diverticulosis of the sigmoid colon. At the descending/sigmoid junction there is slig ht hazy density in the pericolic fat possibly indicating mild diverticulitis. Diverticulitis was seen in this region on the prior study but appears less prominent currently. There is no bowel obstructio n, abscess, free intraperitoneal air or fluid. There are bilateral hip prostheses which limits evaluation of the pelvis. No focal osseous lesions are seen. IMPRESSION: 1.Mild pericolic inflammation at the descending colon/sigmoid junction to a lesser extent than was se en on the prior study. Findings are consistent with mild diverticulitis. 2. Surgical absence of the left kidney.
[2023-03-03 17:01] LABS: Basophils % (A) 1 %; Eosinophils # (A) 0.2 k/uL (0-0.7); Eosinophils % (A) 5 %; HCT 39.4 % (34.0-46.0); HGB 13.3 gm/dL (11.4-16.0); Lymphocytes # (A) 1.5 k/uL (1.0-4.8); Lymphocytes % (A) 32 %; MCHC 33.7 g/dL (31.0-37.0); MCV 98.1 fL (80.0-100.0); Mean Platelet Volume 8.4; Monocytes # (A) 0.2 k/uL (0-1.0); Monocytes % (A) 5 %; Neutrophils # (A) 2.5 k/uL (1.3-7.7); Neutrophils % (A) 55 %; Platelet Count 228 k/uL (150-450); RBC 4.02 m/uL (3.80-5.40); RDW 12.4 % (11.5-15.5); WBC 4.5 k/uL (3.8-10.6)
[2023-03-03 17:10] LABS: ALT 18 U/L (4-34); AST 28 U/L (14-36); African American GFR (CKD) 72 (>60 ml/min/1.73 sqM); Albumin 4.6 g/dL (3.5-5.0); Albumin/Globulin Ratio 1.6; Alkaline Phosphatase 89 U/L (38-126); Anion Gap 9 mmol/L; Blood Urea Nitrogen 12 mg/dL (7-17); Calcium 9.5 mg/dL (8.4-10.2); Carbon Dioxide 26 mmol/L (22-30); Chloride 103 mmol/L (98-107); Globulin 2.8 g/dL; Glucose 98 mg/dL (74-99); Non-African American GFR(CKD) 62 (>60 ml/min/1.73 sqM); Sodium 138 mmol/L (137-145); Total Bilirubin 0.6 mg/dL (0.2-1.3); Total Protein 7.4 g/dL (6.3-8.2)
== END | disposition home or self-care (01) ==
LOC: RADCTMAIN 14:27
PROVIDERS: ATTEND Family Medicine
DX: K57.13 Diverticulitis of small intestine without perforation or abscess with bleeding (principal); N18.30 Chronic kidney disease, stage 3 unspecified; R63.4 Abnormal weight loss; Z90.5 Acquired absence of kidney
CPT/HCPCS: 80053; 82565; 84520; 85025; 74177; 36415; Q9967

== ENCOUNTER → 2023-04-19 | Outpatient (CLI) | payer MEDICARE ==
--- NOTE | 2023-04-19 15:08 | XR ---
EXAMINATION TYPE: XR chest 2V DATE OF EXAM: 04/19/2023 COMPARISON: 03/28/2022. HISTORY: Renal cell carcinoma. TECHNIQUE: Frontal and lateral views of the chest are obtained. FINDINGS: There is no focal air space opacity, pleural effusion, or pneumothorax seen. The cardiac silhouette size is within normal limits. The osseous structures are intact. IMPRESSION: No acute cardiopulmonary process.
[2023-04-19 19:35] LABS: ALT 16 U/L (8-44); AST 24 U/L (13-35); Albumin 4.6 g/dL (3.8-4.9); Alkaline Phosphatase 101 U/L (41-126); Blood Urea Nitrogen 17.6 mg/dL (9.0-27.0); Calcium 9.6 mg/dL (8.7-10.3); Carbon Dioxide 26.4 mmol/L (21.6-31.8); Chloride 103 mmol/L (96-109); Globulin 2.3 g/dL (1.6-3.3); Glucose 96 mg/dL (70-110); Potassium 4.3 mmol/L (3.5-5.5); Sodium 141 mmol/L (135-145); Total Bilirubin 0.4 mg/dL (0.3-1.2); Total Protein 6.9 g/dL (6.2-8.2)
== END | disposition home or self-care (01) ==
LOC: LABWHC1 14:16
PROVIDERS: ATTEND Urology
DX: C64.2 Malignant neoplasm of left kidney, except renal pelvis (principal)
CPT/HCPCS: 36415; 71046; 80053

== ENCOUNTER → 2024-04-08 | Outpatient (CLI) | payer MEDICARE ==
--- NOTE | 2024-04-08 11:03 | XR ---
EXAMINATION TYPE: XR chest 2V DATE OF EXAM: 04/08/2024 10:54 AM COMPARISON: Chest radiographs from 04/19/2023 TECHNIQUE: XR chest 2V Frontal and lateral views of the chest. CLINICAL INDICATION:Female, 78 years old with history of C64.2 renal cell ca; FINDINGS: Lungs/Pleura: There is no evidence of pleural effusion, focal consolidation, or pneumothorax. Chroni c senescent parenchymal change. Pulmonary vascularity: Unremarkable. Heart/mediastinum: Cardiomediastinal silhouette is unremarkable. Atherosclerotic calcifications are seen in the aorta. Musculoskeletal: No acute osseous pathology. Mild multilevel degenerative disc disease. Other: Surgical clips at the GE junction. IMPRESSION: No acute cardiopulmonary disease/process. [facility], , 04/08/2024 11:00 AM
[2024-04-08 16:35] LABS: ALT 16 U/L (8-44); AST 20 U/L (13-35); Albumin 4.3 g/dL (3.8-4.9); Albumin/Globulin Ratio 1.72 Ratio (1.60-3.17); Alkaline Phosphatase 102 U/L (41-126); BUN/Creat Ratio 16.27 Ratio (12.00-20.00); Blood Urea Nitrogen 17.9 mg/dL (9.0-27.0); Calcium 9.3 mg/dL (8.7-10.3); Carbon Dioxide 25.9 mmol/L (21.6-31.8); Chloride 103 mmol/L (96-109); Globulin 2.5 g/dL (1.6-3.3); Glucose 102 mg/dL (70-110); Potassium 4.5 mmol/L (3.5-5.5); Sodium 139 mmol/L (135-145); Total Bilirubin 0.5 mg/dL (0.3-1.2); Total Protein 6.8 g/dL (6.2-8.2)
== END | disposition home or self-care (01) ==
LOC: RADXRMAIN 10:41
PROVIDERS: ATTEND Urology
DX: C64.2 Malignant neoplasm of left kidney, except renal pelvis (principal); I70.0 Atherosclerosis of aorta
CPT/HCPCS: 36415; 71046; 80053